=== PATIENT | female | born 1955 | race Caucasian/White ===

== ENCOUNTER 2019-10-08 10:44 | Outpatient (CLI) | payer BC, SELFPAY ==
--- NOTE | 2019-10-08 10:57 | XR_ITS ---
WS: [id number] THORACIC SPINE TECHNIQUE: 3 views of the thoracic spine CLINICAL INFORMATION: BACK PAIN COMPARISON: None. FINDINGS: Mild thoracic curve convex right. Mild spondylitic changes. Mild thoracic kyphosis. Mild disc space n arrowing in the mid and lower thoracic spine with slight chronic anterior wedging. No acute appearing compression fractures. Disc space narrowing in the lower cervical spine partially visualized. XR/XR thoracic spine 3V* [id number] IMPRESSION: Mild thoracic curve convex right with mild spondylitic changes. No acute appear ing thoracic spine findings.
== END 2019-10-08 10:45 | disposition home or self-care (01) ==
PROVIDERS: Family Provider Electrodiagnostic Medicine; PCP Electrodiagnostic Medicine; Visit Provider Electrodiagnostic Medicine
DX: M54.9 Dorsalgia, unspecified (principal)
CPT/HCPCS: 72072

== ENCOUNTER 2019-11-04 14:52 | Outpatient (CLI) | payer BC, SELFPAY ==
--- NOTE | 2019-11-04 15:05 | XR_ITS ---
WS: [id number] SCREENING DEXA SCAN scroll kit CLINICAL INFORMATION: POSTMENOPAUSAL STATUS COMPARISON: None. FINDINGS: The L1-L4 bone mineral density measures 1.208 g/cm2. This corresponds to a T score score of 0.2 and Z score of 0.6. Left femoral neck bone mineral density measures 0.861 g/cm2. This corresponds to a T score of -1.2 an d Z score of -0.8. Right femoral neck bone mineral density measures 0.893 g/cm2. This corresponds to a T score -0.9of an d Z score of -0.6. Mean femoral neck bone mineral density measures 0.877 g/cm2. This corresponds to a T score of -1.0 an d Z score of -0.7. XR/XR DEXA axial skeleton* [id number] IMPRESSION: Normal bone mineralization in the lumbar spine. Osteopenia in the femoral necks . Patient's FRAX calculated 10 year probability for major osteoporotic fracture i s 9.9 % and osteoporotic hip fracture is 1.0%.
== END 2019-11-04 14:53 | disposition home or self-care (01) ==
LOC: RADWPI 14:54
PROVIDERS: Family Provider Electrodiagnostic Medicine; PCP Electrodiagnostic Medicine; Visit Provider Electrodiagnostic Medicine
DX: Z78.0 Asymptomatic menopausal state (principal); M85.88 Other specified disorders of bone density and structure, other site
CPT/HCPCS: 77080

== ENCOUNTER → 2020-03-01 10:38 | Outpatient (BNVA) | payer MEDICARE, SELFPAY | PROVIDERS: Family Provider Electrodiagnostic Medicine; PCP Electrodiagnostic Medicine; Referring Provider Electrodiagnostic Medicine; Visit Provider Podiatrist Foot & Ankle Surgery | DX: M21.611 Bunion of right foot (principal); M21.612 Bunion of left foot; M20.41 Other hammer toe(s) (acquired), right foot; M20.42 Other hammer toe(s) (acquired), left foot; M67.472 Ganglion, left ankle and foot; M79.672 Pain in left foot | CPT/HCPCS: 73630 ==

== ENCOUNTER 2021-10-07 12:46 | Outpatient (CLI) | payer MEDICARE, SELFPAY ==
--- NOTE | 2021-10-07 13:24 | MM_ITS ---
WS: [id number] BILATERAL 3D TOMOSYNTHESIS DIGITAL SCREENING MAMMOGRAPHY WITH CAD CLINICAL INFORMATION: SCREENING HISTORY: Screening mammogram. No current complaints. COMPARISON: September 09, 2020 TECHNIQUE: Bilateral CC and MLO views. FINDINGS: Scattered fibroglandular densities bilaterally. Punctate and lucent centered calcifications. Vascular calcifications. No suspicious focal mass, asymmetry, calcifications, or architectural distortion. No evidence of malignancy. MM/[place] [id number] IMPRESSION: BI-RADS: 2-Benign FOLLOW UP: 1 Year Follow-up Recommend return to annual screening mammography.
== END 2021-10-07 12:47 | disposition home or self-care (01) ==
LOC: RAD 12:48
PROVIDERS: Family Provider Electrodiagnostic Medicine; PCP Electrodiagnostic Medicine; Visit Provider Electrodiagnostic Medicine
DX: Z12.31 Encounter for screening mammogram for malignant neoplasm of breast (principal)
CPT/HCPCS: 77063; 77067

== ENCOUNTER 2022-05-18 06:41 | Emergency (ER) | payer MEDICARE, SELFPAY ==
--- NOTE | 2022-05-18 06:46 | W.ED.BACK ---
HPI - Back Pain/Injury General: Chief Complaint: Back Pain/Injury Stated Complaint: Lower back pain Time Seen by Provider: 05/18/22 06:46 Source: patient Mode of arrival: ambulatory History of Present Illness: 60-year-old female presents emergency room planing of low back pain left of the midline she cannot recall if he had precipitated. Patient previously had a chronic back issues or advanced imaging or procedures done to her back. Pain does not radiate to her legs no loss of bowel or bladder control. No numbness tingling pain change in legs or perineum. States actually feels better when she walks. No falls no trauma no hematuria a few days ago she was seen in clinic and they thought it was a bladder infection she was started on oral antibiotics. Patient not had any fever sweats or chills or hematuria. MD elicited complaint: back pain Pertinent past history: prior back pain Onset (ago): minute(s) Timing: constant Severity: mild Similar Symptoms Previously: No Quality: aching Location: lumbar spine Radiation: none Exacerbating factors: movement, sitting upright and walking Relieving factors: none Associated symptoms: Reports dysuria (Mild); Deny abdominal pain, arthralgias, chills, change in bowel habits, difficulty walking, fatigue, fecal incontinence, fever(s), hematuria, myalgias, nausea, numbness, syncope, tingling/numbness/burning, urinary frequency, urinary urgency, vomiting or weakness Review of Systems Const: Denies: fever(s), chills or fatigue ENMT: Denies: throat pain, ear or mastoid pain, nasal discharge or nasal congestion Card: Denies: syncope Resp: Denies: dyspnea, productive cough or non-productive cough GI: Denies: abdominal pain, nausea, vomiting, fecal incontinence or change in bowel habits : Reports: dysuria (Mild); Denies: flank pain, difficulty voiding, urinary urgency or hematuria Musc: Reports: back pain; Denies: neck pain, extremity pain or extremity swelling Skin/Breast: Denies: rash or pruritus Neuro: Denies: difficulty walking PFSH ED PFSH: Medical History GERD (gastroesophageal reflux disease) Surgical History History of foot surgery bunionectomy left foot, hammer toe correction left foot Social History Smoking and tobacco status: never smoked Alcohol intake: never Current occupational status: retired Physical Exam Const: COMMON NORMALS: no acute distress and patient oriented x3 GENERAL APPEARANCE: cooperative and comfortable ORIENTATION/CONSCIOUSNESS: Yes awake, Yes oriented to person, Yes oriented to place and Yes oriented to time HENMT: COMMON NORMALS: normocephalic, atraumatic and hearing grossly normal bilaterally HEAD & SCALP: normocephalic and atraumatic Resp: COMMON NORMALS: normal respiratory effort, No retractions, No use of accessory muscles and clear to auscultation bilaterally AUSCULTATION: clear to auscultation bilaterally Cardio: COMMON NORMALS: regular rate, regular rhythm and No murmurs present (Cardio) RATE: regular rate RHYTHM: regular rhythm GI: COMMON NORMALS: Soft to palpation and No hepatosplenomegaly present AUSCULTATION: Yes normoactive bowel sounds PALPATION: Yes Soft to palpation, No Tenderness to palpation present (GI), No Guarding due to palpation present (GI) and Yes No hepatosplenomegaly present Extremity: COMMON NORMALS: normal to inspection, capillary refill normal, no clubbing, cyanosis or edema, no calf tenderness and no pedal edema Neuro: COMMON NORMALS: patient oriented x3, CN's II-XII intact bilaterally and moves all extremities SENSORIUM/ORIENTATION: Yes oriented to person, Yes oriented to place and Yes oriented to time SPEECH: speech normal GAIT: Yes Normal gait present SENSORY EXAM: No sensory level loss detected MOTOR EXAM: 5/5 motor strength present throughout, Normal motor muscle tone present throughout, No Pronator motor function present and Tremors during motor activity present DEEP TENDON REFLEXES: Right patellar reflex intensity grade: 2+, Left patellar reflex intensity grade: 2+, Right ankle reflex intensity grade: 1+ and Left ankle reflex intensity grade: 1+ Skin: COMMON NORMALS: no rashes or lesions noted GENERAL SKIN EXAM: no rashes or lesions noted Course Vital Signs: Vital signs: Vital Signs Temperature 98.5 F 05/18/22 06:47 Pulse Rate 102 H 05/18/22 07:18 Respiratory Rate 16 05/18/22 07:18 Blood Pressure 158/108 05/18/22 07:18 Pulse Oximetry 96 12/22/22 07:18 Oxygen Delivery Me thod 05/18/22 07:18 MDM - Back Pain/Injury Medical Decision Making Exam does not show any sign of lumbar nerve impingement UA is negative. Straight leg raising deep tendon sensation lower extremities all normal. Discharged home with tizanidine steroid taper diclofenac as needed. Follow-up with her primary care if not improving. Medical Records I reviewed the patient's medical records. Labs I reviewed the patient's lab results. Laboratory Results Urine Color Yellow (Yellow) 05/18/22 07:13 Urine Appearance Clear (CLEAR) 05/18/22 07:13 Urine pH 7 (5-7) 05/18/22 07:13 Ur Specific [place] 1.015 (1.005-1.030) 05/18/22 07:13 Urine Protein Neg (Negative) 05/18/22 07:13 Urine Glucose (UA) Norm (Normal) 05/18/22 07:13 Urine Ketones 1+ (Negative) H 05/18/22 07:13 Urine Blood Neg (Negative) 05/18/22 07:13 Urine Nitrate Negative (Negative) 05/18/22 07:13 Urine Bilirubin Neg (Negative) 05/18/22 07:13 Urine Urobilinogen Neg mg/dL (Negative) 05/18/22 07:13 Ur Leukocyte Esterase Negative (Negative) 05/18/22 07:13 Discharge Plan Discharge Patient Disposition: Home Clinical Impression: Strain of lumbar region Condition: Stable Prescriptions: New tizanidine 4 mg tablet 4 mg PO Q8H PRN (Reason: muscle spasticity) Qty: 20 0RF prednisone 20 mg tablet 20 mg PO TID Qty: 15 0RF Rx Instructions: 1 p.o. 3 times daily x3 days, 1 p.o. twice daily x2 days, 1 p.o. daily x2 days diclofenac sodium 75 mg tablet,delayed release (DR/EC) 75 mg PO Q12H PRN (Reason: pain) Qty: 20 0RF No Action magnesium oxide 200 mg magnesium tablet,chewable 200 mg PO DAILY atorvastatin 20 mg tablet 20 mg PO QPM cholecalciferol (vitamin D3) 25 mcg (1,000 unit) capsule 25 mcg PO DAILY Lactobacillus acidophilus Capsule 10 mg PO DAILY omeprazole 20 mg capsule,delayed release(DR/EC) 20 mg PO DAILY Galzin 50 mg (zinc) capsule 50 mg PO DAILY pimecrolimus [Elidel] 1 % cream 1 applic topical BID Qty: 60 1RF Rx Instructions: Apply to affected area on face twice daily as needed metronidazole 1 % gel 1 applic topical DAILY Qty: 60 6RF Rx Instructions: Apply thin film to entire face daily cefuroxime axetil 500 mg tablet 500 mg PO BID fluticasone propionate 50 mcg/actuation spray,suspension 1 spray INTRANASAL QPM coQ10 (ubiquinol) 200 mg Capsule 200 mg PO DAILY Discharge Orders: Discharge ED (Routine); Ordered 05/18/22 Ordered By: Tato Grullon Referrals: James Velazquez, [Primary Care Provider] - Discharge Diet: Usual diet Discharge Activity: Increase activity as tolerated Patient Instructions: Back Pain (ED), Opioid Safety, Pain Management Activity Restrictions/Additional Instructions: You were seen for low back pain. There is no signs of nerve impingement on your exam no sign of bladder infection at this time recommend you avoid bending stooping lifting below the waist. Use medications as prescribed above. If not improving follow-up with your primary care doctor for further evaluation or possible referral for PT or advanced imaging as deemed appropriate. Coding Level of Care Code ED Iron Molder Helper for Zonia Fwd Exam Comprehensive
[2022-05-18 06:47] VITALS: BP 158/108; PULSE 106; RESP 20; TEMP 36.9; O2SAT 96; BMI 35.5
[2022-05-18 07:18] VITALS: BP 158/108; PULSE 102; RESP 16; O2SAT 96
[2022-05-18 07:25] LABS: Add Urine Microscopic? NO; Charge for UA Resulting for Rev
[2022-05-18 07:28] LABS: Urine Appearance Clear (CLEAR); Urine Color Yellow (Yellow)
[2022-05-18 07:29] LABS: Bilirubin Urine Neg (Negative); Blood Urine Neg (Negative); Glucose Urine UA Norm (Normal); Ketones Urine 1+ (Negative); Leukocyte Esterase Urine Negative (Negative); Nitrate Urine Negative (Negative); Protein Urine Neg (Negative); Specific Gravity, Urine 1.015 (1.005-1.030); Urobilinogen Urine Neg (Negative); pH Urine 7 (5-7)
[2022-05-18] MEDS: dexamethasone 10 mg/mL INJ IVP (07:32)
[2022-05-18] MEDS: ketorolac 30 mg/mL INJ IVP (07:32)
[2022-05-18] MEDS: orphenadrine 30 mg/mL Inj 2 mL 60 MG IVP (07:32)
[2022-05-18] MEDS: morphine 4 mg/mL SDV 1 mL 2 MG IVP (07:32)
[2022-05-18 08:53] VITALS: BP 158/108; PULSE 102; RESP 16; O2SAT 96
== END 2022-05-18 08:55 | disposition home or self-care (01) ==
PROVIDERS: Emergency Provider Family Medicine; PCP Electrodiagnostic Medicine
DX: S39.012A Strain of muscle, fascia and tendon of lower back, initial encounter (principal); X58.XXXA Exposure to other specified factors, initial encounter
CPT/HCPCS: 81003; 96374; 96375; 99284; J1100; J1885; J2270; J2360

== ENCOUNTER 2022-10-16 07:46 | Outpatient (CLI) | payer MEDICARE, SELFPAY ==
--- NOTE | 2022-10-16 07:55 | MM_ITS ---
WS: [id number] BILATERAL SCREENING DIGITAL TOMOSYNTHESIS MAMMOGRAM WITH CAD HISTORY: SCREENING COMPARISON: 10/07/2021, 09/09/2020 and 08/13/2019 Bilateral CC and MLO views with tomosynthesis and synthetic mammography submitted. Computer aided det ection analyzed. Breast composition: There are scattered areas of fibroglandular density. No suspicious masses, microc alcifications or architectural distortion. Benign calcifications and long-term stability mass in the LEFT breast. MM/[place] [id number] IMPRESSION: BI-RADS: 2-Benign FOLLOW UP: 1 Year Follow-up
== END 2022-10-16 07:47 | disposition home or self-care (01) ==
LOC: RAD 07:48
PROVIDERS: PCP Electrodiagnostic Medicine; Visit Provider Electrodiagnostic Medicine
DX: Z12.31 Encounter for screening mammogram for malignant neoplasm of breast (principal)
CPT/HCPCS: 77063; 77067

== ENCOUNTER → 2023-03-09 10:19 | Outpatient (BNVA) | payer MEDICARE, SELFPAY | PROVIDERS: PCP Electrodiagnostic Medicine; Visit Provider Nurse Practitioner Family | DX: L81.4 Other melanin hyperpigmentation (principal); D22.5 Melanocytic nevi of trunk; L85.3 Xerosis cutis; L57.8 Other skin changes due to chronic exposure to nonionizing radiation; L57.0 Actinic keratosis; L82.0 Inflamed seborrheic keratosis; L72.0 Epidermal cyst | CPT/HCPCS: 10060; 17000; 17110; 99213 ==

== ENCOUNTER 2023-07-24 12:00 | Outpatient (CLI) | payer MEDICARE, SELFPAY | END 2023-07-24 12:01 | disposition home or self-care (01) | LOC: SLEEP 07-25 08:38 | PROVIDERS: PCP Electrodiagnostic Medicine; Visit Provider Electrodiagnostic Medicine | DX: G47.33 Obstructive sleep apnea (adult) (pediatric) (principal) | CPT/HCPCS: G0399 ==

== ENCOUNTER → 2023-09-10 10:13 | Outpatient (BNVA) | payer MEDICARE, SELFPAY | PROVIDERS: PCP Electrodiagnostic Medicine; Visit Provider Nurse Practitioner Family | DX: L57.0 Actinic keratosis (principal); L72.0 Epidermal cyst; L81.4 Other melanin hyperpigmentation; D22.61 Melanocytic nevi of right upper limb, including shoulder; L85.3 Xerosis cutis; L57.8 Other skin changes due to chronic exposure to nonionizing radiation; L82.0 Inflamed seborrheic keratosis | CPT/HCPCS: 17000; 17110; 99213 ==

== ENCOUNTER 2023-10-18 07:43 | Outpatient (CLI) | payer MEDICARE, SELFPAY ==
--- NOTE | 2023-10-18 07:49 | MM_ITS ---
WS: [id number] Bilateral screening 3D tomosynthesis digital mammogram, 10/18/2023 Clinical Data: SCREENING Comparison: 10/16/2022, 10/07/2021, 09/09/2020, 08/13/2019, 07/29/2018, 07/17/2018, 07/06/2017 06/21/2016, 04/28, 05/13/2014, 05/12/2013, 05/10/2012. Findings: The breast parenchymal pattern shows fibroglandular tissue. No spiculated masses or clustered calcifi cations are seen. There are no secondary signs of carcinoma. MM/[place] [id number] Impression: 1. Negative bilateral mammogram unchanged. 2. Recommend annual screening mammograms. BIRADS: 1-Negative FOLLOW UP: 1 Year Follow-up The CAD stock checkerer was used.
== END 2023-10-18 07:44 | disposition home or self-care (01) ==
LOC: RAD 07:44
PROVIDERS: PCP Electrodiagnostic Medicine; Visit Provider Electrodiagnostic Medicine
DX: Z12.31 Encounter for screening mammogram for malignant neoplasm of breast (principal); R92.323 Mammographic fibroglandular density, bilateral breasts
CPT/HCPCS: 77063; 77067

== ENCOUNTER → 2024-03-19 08:10 | Outpatient (BNVA) | payer MEDICARE, SELFPAY | PROVIDERS: PCP Electrodiagnostic Medicine; Visit Provider Nurse Practitioner Family | DX: L71.8 Other rosacea (principal); L57.0 Actinic keratosis; L82.0 Inflamed seborrheic keratosis; D48.5 Neoplasm of uncertain behavior of skin; L57.8 Other skin changes due to chronic exposure to nonionizing radiation | CPT/HCPCS: 11104; 17000; 17110; 99213 ==

== ENCOUNTER → 2024-08-27 12:27 | Outpatient (BNVA) | payer MEDICARE, SELFPAY | PROVIDERS: PCP Electrodiagnostic Medicine; Visit Provider Nurse Practitioner Family | DX: L57.8 Other skin changes due to chronic exposure to nonionizing radiation (principal); I78.8 Other diseases of capillaries; L82.1 Other seborrheic keratosis; Z08 Encounter for follow-up examination after completed treatment for malignant neoplasm; Z85.828 Personal history of other malignant neoplasm of skin; L82.0 Inflamed seborrheic keratosis; R58 Hemorrhage, not elsewhere classified; Z78.9 Other specified health status; L29.89 Other pruritus | CPT/HCPCS: 17110; 99213 ==

== ENCOUNTER → 2024-10-08 11:02 | Outpatient (BNVA) | payer MEDICARE, SELFPAY | PROVIDERS: PCP Electrodiagnostic Medicine; Visit Provider Nurse Practitioner Family | DX: L57.8 Other skin changes due to chronic exposure to nonionizing radiation (principal); I78.8 Other diseases of capillaries; L82.1 Other seborrheic keratosis; Z08 Encounter for follow-up examination after completed treatment for malignant neoplasm; Z85.828 Personal history of other malignant neoplasm of skin; L82.0 Inflamed seborrheic keratosis; Z78.9 Other specified health status; L53.8 Other specified erythematous conditions; D48.5 Neoplasm of uncertain behavior of skin; L57.0 Actinic keratosis | CPT/HCPCS: 11102; 17000; 17110; 99213 ==

== ENCOUNTER 2024-10-27 08:27 | Outpatient (CLI) | payer MEDICARE, SELFPAY ==
--- NOTE | 2024-10-27 08:29 | MM_ITS ---
WS: [id number] BILATERAL SCREENING DIGITAL TOMOSYNTHESIS MAMMOGRAM WITH CAD HISTORY: SCREENING COMPARISON: 10/18/2023, 10/16/2022, 08/13/2019 Bilateral CC and MLO views with tomosynthesis and synthetic mammography submitted. Computer aided detection analyzed. Breast composition: There are scattered areas of fibroglandular density. No suspicious masses, microcalcifications or architectural distortion. Long-term stability of well-circumscribed mass LEFT breast near 3:00. Benign calcifications. MM/MM scr BI tomosynthesis [id number] IMPRESSION: BI-RADS: 2 - Benign. FOLLOW UP: 1 Year Follow-up
== END 2024-10-27 08:28 | disposition home or self-care (01) ==
PROVIDERS: PCP Electrodiagnostic Medicine; Visit Provider Electrodiagnostic Medicine
DX: Z12.31 Encounter for screening mammogram for malignant neoplasm of breast (principal); R92.323 Mammographic fibroglandular density, bilateral breasts; N63.25 Unspecified lump in the left breast, overlapping quadrants; R92.1 Mammographic calcification found on diagnostic imaging of breast
CPT/HCPCS: 77063; 77067

== ENCOUNTER → 2024-11-12 12:50 | Outpatient (BNVA) | payer MEDICARE, SELFPAY | PROVIDERS: PCP Electrodiagnostic Medicine; Visit Provider Dermatology | DX: I78.8 Other diseases of capillaries (principal); L82.1 Other seborrheic keratosis; Z08 Encounter for follow-up examination after completed treatment for malignant neoplasm; Z85.828 Personal history of other malignant neoplasm of skin; C44.311 Basal cell carcinoma of skin of nose; D48.5 Neoplasm of uncertain behavior of skin | CPT/HCPCS: 11102; 17281; 99213 ==

== ENCOUNTER → 2024-12-16 08:39 | Outpatient (BNVA) | payer MEDICARE, SELFPAY | PROVIDERS: PCP Electrodiagnostic Medicine; Visit Provider Dermatology | DX: C44.319 Basal cell carcinoma of skin of other parts of face (principal) | CPT/HCPCS: 12052; 17311 ==

== ENCOUNTER 2025-02-10 16:20 | Emergency (ER) | payer MEDICARE, SELFPAY ==
[2025-02-10 16:24] VITALS: BP 120/79; PULSE 89; RESP 17; TEMP 36.8; O2SAT 96; BMI 28.8
--- OUTSIDE RECORDS SUMMARY | 2025-02-10 16:26 | XMS_ITS | Clinical Summary ---
Author Organization [facility] Address [address] [place] [address] Phone Care Team Providers Care Car Unloader Helper Name Role Phone James Velazquez DO Primary Care Provider [phone] Allergies No known active allergies Medications omeprazole (PriLOSEC) 20 mg Capsule, Delayed Release(E.C.) Take 20 mg by mouth daily. Active losartan (COZAAR) 50 mg tablet Take 50 mg by mouth daily. Active Active Problems No known active problems Family History Medical History Relation Name Comments Colon Cancer Mother Breast Cancer Neg Hx Ovarian Cancer Neg Hx Relation Name Status Comments Daughter 1 Alive Daughter 2 Alive Maternal Grandmother Mother Sister NONE Social History Tobacco Use Types Packs/Day Years Used Date Smoking Tobacco: Never Smokeless Tobacco: Never Tobacco Cessation:Counseling Given: No Alcohol Use Standard Drinks/Week Comments No 0 (1 standard drink = 0.6 oz pur e alcohol) Comments No Sex and Gender Information Value Date Recorded Sex Assigned at Not on file Legal Sex Female 9:49 PM CUSTOMS INVESTIGATOR Gender Identity Not on file Sexual Orientation Not on file Last Filed Vital Signs Vital Sign Reading Time Taken Comments Blood Pressure 118/78 04/11/2012 5:22 PM CUSTOMS INVESTIGATOR Pulse 87 04/11/2012 5:22 PM CUSTOMS INVESTIGATOR Temperature 37.1 C (98.8 F) 04/11/2012 3:22 PM CUSTOMS INVESTIGATOR Respiratory Rate 16 04/11/2012 5:22 PM CUSTOMS INVESTIGATOR Oxygen Saturation 100% 04/11/2012 5:22 PM CUSTOMS INVESTIGATOR Inhaled Oxygen Concentration - - Weight 86.2 kg (190 lb) 04/11/2012 3:22 PM CUSTOMS INVESTIGATOR Height 167.6 cm (5' 6 ) 04/11/2012 3:22 PM CUSTOMS INVESTIGATOR Body Mass Index 30.67 04/11/2012 3:22 PM CUSTOMS INVESTIGATOR Plan of Treatment Health Maintenance Due Date Last Done Comments DTAP/TDAP/TD VACCINES (1 - Tdap) 1974 COLORECTAL SCREENING 02/01/2000 Colorectal Cancer Screening 02/01/2000 FIT-DNA Q 3 years 02/01/2000 FIT/FOBT Q 1 year 02/01/2000 Flex Sig/CT Colonography Q 5 years 02/01/2000 PNEUMOCOCCAL VACCINE 50+ YEA RS (1 of 1 - PCV) 2005 ZOSTER VACCINE (1 of 2) 2005 OSTEOPOROSIS SCREENING 02/01/2020 BREAST CANCER SCREENING 09/09/2021 09/10/19 21, 09/09/2020, 08/13/2019, Additional history exists INFLUENZA VACCINE (#1) 2024 RSV VACCINE (60+ or ) (1 - 1-dose 75+ series) 2030 Procedures Procedure Name Priority Date/Time Associated Diagnosis Comments MAMMO SCREEN BILAT W OR WO CAD Routine 09/09/2020 10:03 AM CDT Encounter for screening mammogram for malignant neoplasm of breast from Last 3 Months or Most Recently Relevant to Health Maintenance Results * MAMMO SCREEN BILAT W OR WO CAD (09/09/2020 10:03 AM CDT) Anatomical Region Laterality Modality Breast Bilateral Other Narrative 09/09/2020 3:46 PM CDT Bilateral Mammogram Reason for Exam: Screening Comparison: Compared to: 08/13/2019 MAMMO SCREEN BILAT W OR WO CAD, 07/17/2018 MAMMO SCREEN BILAT W OR WO CAD, and 07/06/2017 MAMMO SCREEN BILAT W OR WO CAD Findings: Bilateral CC and MLO views were obtained. This examination was reviewed with the aid of a computer-aided detection system(CAD). Breast Composition: There are scattered areas of fibroglandular density. There are no suspicious masses, areas of architectural distortions, or microcalcifications to suggest malignancy. No significant new findings since the prior mammogram(s). Impression: Negative screening mammogram. Recommendation: Routine annual follow-up Overall Assessment: Birads Category 1: Negative Procedure Note Giovanni Phillips MD - 11/02/2020 Bilateral Mammogram Reason for Exam: Screening Comparison: Compared to: 08/13/2019 MAMMO SCREEN BILAT W OR WO CAD, 07/17/2018 MAMMO SCREEN BILAT W OR WO CAD, and 07/06/2017 MAMMO SCREEN BILAT W OR WO CAD Findings: Bilateral CC and MLO views were obtained. This examination was reviewed with the aid of a computer-aided detection system(CAD). Breast Composition: There are scattered areas of fibroglandular density. There are no suspicious masses, areas of architectural distortions, or microcalcifications to suggest malignancy. No significant new findings since the prior mammogram(s). Impression: Negative screening mammogram. Recommendation: Routine annual follow-up Overall Assessment: Birads Category 1: Negative us Mammography Self Referral Provider MD KAMERON LI Final Result from Last 3 Months or Most Recently Relevant to Health Maintenance [place] [address] [place] [id number] Care Teams Car Unloader Helper Relationship Specialty Start Date End Date James Velazquez DO PCP - General 08/26/20
--- OUTSIDE RECORDS SUMMARY | 2025-02-10 16:26 | XMS_ITS | Encounter Summary ---
Author Organization [facility] Address [address] [place] [address] Care Team Providers Care Long Filler Cigar Roller Machine Name Role Phone James Velazquez Primary Care Provider [phone] Reason for Referral * Radiology Services (Routine) - Closed Specialty Diagnoses / Procedures Referred By Contac t Referred To Contact Diagnoses Encounter for screening mammogram for malignant neoplasm of breast Procedures MAMMO SCREEN BILAT W OR WO CAD Self Referral ProviderJohn MD Referral ID Status Reason Start Date Expiration Date Visits Re quested Visits Authorized [id number] Closed 08/24/2020 09/24/2021 1 1 Encounter Details Date Type Department Care Team (Late st Contact Info) Description 08/24/2020 Ancillary Orders [facility] Centralized Scheduling [address] [place] [id number] Self Referral ProviderJohn MD Encounter for screening mammogram for malignant neoplasm of breast Social History Tobacco Use Types Packs/Day Years Used Date Smoking Tobacco: Never Assessed Comments Unknown Sex and Gender Information Value Date Recorded Sex Assigned at Not on file Legal Sex Female 1:29 PM IC DESIGNER CUSTOM Gender Identity Not on file Sexual Orientation Not on file documented as of this encounter Plan of Treatment Not on file documented as of this encounter Results * MAMMO SCREEN BILAT W OR WO CAD (09/09/2020 10:03 AM CDT) Anatomical Region Laterality Modality Breast Bilateral Mammography Narrative 09/09/2020 3:50 PM CDT Bilateral Mammogram Reason for Exam: [...] Referral Provider MD KAMERON LI Final Result documented in this encounter Visit Diagnoses Diagnosis Encounter for screening mammogram for malignant neoplasm of breast Other screening mammogram Encounter for screening mammogram for malignant neoplasm of breast Other screening mammogram documented in this encounter Care Teams Long Filler Cigar Roller Machine Relationship Specialty Start Date End Date James Velazquez DO PCP - General Family Practice 08/13/19 documented as of this encounter
--- OUTSIDE RECORDS SUMMARY | 2025-02-10 16:26 | XMS_ITS | Clinical Summary ---
Author Organization [facility] Address [address] [place] [address] Phone Care Team Providers Care Machine Adjuster Name Role Phone James Velazquez Primary Care Provider Family History Medical History Relation Name Comments Colon Cancer Mother Breast Cancer Neg Hx Ovarian Cancer Neg Hx Relation Name Status Comments Daughter 1 Alive Daughter 2 Alive Maternal Grandmother Mother Sister NONE Social History Tobacco Use Types Packs/Day Years Used Date Smoking Tobacco: Never Assessed Comments No Sex and Gender Information Value Date Recorded Sex Assigned at Not on file Legal Sex Female 1:29 PM SUPERVISOR INSPECTING Gender Identity Not on file Sexual Orientation Not on file Plan of Treatment Health Maintenance Due Date [...] 02/01/2020 BREAST CANCER SCREENING 09/09/2021 09/10/19 21, 08/13/2019, 07/17/2018, Additional history exists INFLUENZA VACCINE (#1) 2024 [...] Most Recently Relevant to Health Maintenance Insurance [facility] MEDIC[facility] PART A AND B Care Teams Machine Adjuster Relationship Specialty Start Date End Date James Velazquez DO PCP - General Family Practice 08/13/19
--- OUTSIDE RECORDS SUMMARY | 2025-02-10 16:26 | XMS_ITS | Encounter Summary ---
Author Organization [facility] Address [address] [place] [address] Care Team Providers Care Clinical Account Specialist Name Role Phone James Velazquez DO Primary Care Provider [phone] Encounter Details Date Type Department Care Team (Late st Contact Info) Description 02/14/2008 Outpatient Historical [place] [address] [place] [place] [address] [place] [address] Other Symptoms Referable to Hand Joint Social History Tobacco Use Types Packs/Day Years Used Date Smoking Tobacco: Never Assessed Comments Unknown Sex and Gender Information Value Date Recorded Sex Assigned at Not on file 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 Gender Identity Not on file Sexual Orientation Not on file documented as of this encounter Plan of Treatment Not on file documented as of this encounter Procedures Procedure Name Priority Date/Time Associated Diagnosis Comments MRI WRIST WO CONTRAST RIGHT Timed Study 02/14/2008 7:59 AM CDT POC CREATININE Routine 02/14/2008 7:18 AM CDT documented in this encounter Results * MRI WRIST WO CONTRAST RIGHT (02/14/2008 7:59 AM CDT) Anatomical Region Laterality Modality Wrist / Hand Other 02/14/2008 7:59 AM CDT Narrative 02/14/2008 4:53 PM CDT [address] [address] Admit Date: 02/14/2008 C[place] PRO Sex: F Admit Prov: BONY CHAMBERS Date: 1955 Primary Care Prov: KIZZY CRAWFORD CMRN: [id number] [facility] SS[facility]: [id number] IM[facility]ING SERVICES Ordering Prov: N/A Accession Number: [id number] Interpretation EXAM: MRI RIGHT HAND AND FINGERS WITH AND WITHOUT IV CONTRAST 02/14/2008 Indication: Palpable mass which comes and goes. Findings: A marker is placed at the site of the mass which is just lateral to the index finger proximal interphalangeal joint. At this joint, there is very small exostosis or osteophyte measuring about 2 mm projecting laterally off of the middle phalanx. The joint is normally aligned and symmetric with the other PIP joints. The collateral ligaments, the extensor mechanism and flexor tendons are all normally positioned with normal signal and normal size. There is no joint effusion. There is no evidence of a soft tissue mass or cyst. After contrast injection, there is no abnormal enhancement. This finger demonstrates an ill-defined lobulated mass with several small projections surrounding the proximal interphalangeal joint measuring 2.4 cm craniocaudal x 1.2 cm AP x 1.6 cm transverse. The mass works its way around the joint, surrounding the collateral ligaments and is predominantly deep to the extensor fluid. There is a small portion of mass extending around to the volar side of the proximal phalanx deep to the flexor tendon. Lesion is mostly bright on T2 and dark on T1 and demonstrates diffuse fairly homogeneous enhancement after contrast administration. Exam is slightly limited as this finger is not included in the sagittal views and is imaged in the oblique plane on the coronal views which were angled in relation to the index finger. I do not see an obvious erosion at the joint margin. Flexor and extensor tendons are still intact. Impression: No evidence of soft tissue mass involving the index finger, although there is a tiny laterally projecting exostosis or osteophyte at the PIP joint. This is small enough that I doubt it is causing the palpable mass. There is an enhancing lesion surrounding the proximal interphalangeal joint of the fifth finger demonstrating diffuse enhancement. Characteristics are nonspecific. The differential includes diffuse abnormal synovial proliferation and enhancement associated with an inflammatory arthritis, such as infection or gout, however I do not appreciate marginal erosions. Also included in the differential is enhancing gouty tophus, giant cell tumor of tendon sheath or even a synovial cell carcinoma. Clinical history and further workup is recommended. . Dictated by: MICH KEENE 02/14/2008 12:19 Electronically signed by: MICH KEENE 02/14/2008 16:52 Transcribed: 02/14/2008 16:15 AMK Procedure Note Mich Keene - 02/14/2008 [facility] [place] [address] [place], [place] [address] Admit Date: 02/14/2008 [place] PRO Sex: F Admit Prov: BONY CHAMBERS Date: 1955 Primary Care Prov: KIZZY CRAWFORD CMRN: [id number] Room: [facility] SSN: [id number] IMAGING SERVICES Ordering Prov: N/A Interpretation EXAM: MRI RIGHT HAND AND FINGERS WITH AND WITHOUT IV CONTRAST02/14/2008 Indication: Palpable mass which comes and goes. Findings: A marker is placed at the site of the mass which is just lateral tothe index finger proximal interphalangeal joint. At this joint, there isvery small exostosis or osteophyte measuring about 2 mm projectinglaterally off of the middle phalanx. The joint is normally aligned and symmetricwith the other PIP joints. The collateral ligaments, the extensor mechanismand flexor tendons are all normally positioned with normal signal andnormal size. There is no joint effusion. There is no evidence of a softtissue mass or cyst. After contrast injection, there is no abnormalenhancement. This finger demonstrates an ill-defined lobulated mass with severalsmall projections surrounding the proximal interphalangeal joint measuring2.4 cm craniocaudal x 1.2 cm AP x 1.6 cm transverse. The mass works its wayaround the joint, surrounding the collateral ligaments and is predominantlydeep to the extensor fluid. There is a small portion of mass extendingaround to the volar side of the proximal phalanx deep to the flexor tendon.Lesion is mostly bright on T2 and dark on T1 and demonstrates diffuse fairly homogeneous enhancement after contrast administration. Exam isslightly limited as this finger is not included in the sagittal views and isimaged in the oblique plane on the coronal views which were angled inrelation to the index finger. I do not see an obvious erosion at the jointmargin. Flexor and extensor tendons are still intact. Impression: No evidence of soft tissue mass involving the index finger, althoughthere is a tiny laterally projecting exostosis or osteophyte at the PIPjoint. This is small enough that I doubt it is causing the palpable mass. There is an enhancing lesion surrounding the proximal interphalangealjoint of the fifth finger demonstrating diffuse enhancement.Characteristics are nonspecific. The differential includes diffuse abnormal synovial proliferation and enhancement associated with an inflammatoryarthritis, such as infection or gout, however I do not appreciate marginalerosions. Also included in the differential is enhancing gouty tophus, giantcell tumor of tendon sheath or even a synovial cell carcinoma. Clinicalhistory and further workup is recommended. . Dictated by: MICH KEENE 02/14/2008 12:19 Electronically signed by: MICH KEENE 02/14/2008 16:52 Transcribed: 02/14/2008 16:15 AMK us Bony Chambers MD MR ORDERABLES Final Result * POC CREATININE (02/14/2008 7:18 AM CDT) CREATININE POC 0.7 0.6 - 1.3 mg/dL [facility] GFR, >60 >=60 mL/min/1.7 sq meter [facility] GFR >60 >=60 mL/min/1.7 sq meter [facility] Capillary blood specimen (specimen) 02/14/2008 7:18 AM CDT 02/14/2008 7:18 AM CDT us Bony Chambers MD POINT OF CARE TESTING Edited INTERFACE SYSTEM Refer to clinic/hospital department [facility] CLIA# [id number] [address] [place] [address] documented in this encounter Visit Diagnoses Diagnosis Other symptoms referable to hand joint documented in this encounter Care Teams Clinical Account Specialist Relationship Specialty Start Date End Date James Velazquez DO PCP - General 08/26/20 documented as of this encounter
--- OUTSIDE RECORDS SUMMARY | 2025-02-10 16:26 | XMS_ITS | Encounter Summary ---
Author Organization [facility] Address 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
[2025-02-10 16:42] LABS: Glucose Urine UA Negative (Normal); Nitrate Urine Negative (Negative); Specific Gravity, Urine 1.019 (1.005-1.030)
[2025-02-10 16:45] LABS: Add Urine Microscopic? YES
[2025-02-10 17:04] LABS: Hematocrit 42.0 % (36-47); Hemoglobin 13.90 g/dL (11.27-16.99); Mean Corpuscular HGB Conc 33.1 g/dL (30-55); Mean Corpuscular Hemoglobin 29.6 pg (27-33); Mean Corpuscular Volume 89.4 fl (85-98); Nucleated Red Blood Cells % 0 %; Platelet Count 313 10^3/cmm (157-399); Red Blood Count 4.70 10^6/uL (3.85-5.65); White Blood Count 6.97 10^3/uL (3.29-11.43)
[2025-02-10 17:22] LABS: Alanine Aminotransferase 10 U/L (0-33); Albumin Level 4.1 g/dL (3.5-5.2); Alkaline Phosphatase 82 U/L (35-105); Anion Gap 16.0 (5-19); Aspartate Amino Transferase 16 U/L (0-32); Blood Urea Nitrogen 13 mg/dL (8-23); Calcium 9.2 mg/dL (8.5-10.5); Carbon Dioxide 25 mmol/L (22-29); Chloride 102 mmol/L (98-107); Creatinine Clr Calc Pharmacy 70.3021; Globulin 3.5 g/dL (1.3-4.6); Glucose 114 mg/dL (65-115); Osmolality Calculated 289 mOsm/kg (285-295); Potassium 4.0 mmol/L (3.5-5.1); Sodium 139 mmol/L (136-145); Total Protein 7.6 g/dL (6.6-8.7)
--- NOTE | 2025-02-10 18:30 | CTR_ITS ---
PROCEDURE INFORMATION: Exam: CT Abdomen And Pelvis Without Contrast Exam date and time: 02/10/2025 6:43 PM Age: 70 years old Clinical indication: Abdominal pain; Flank; Right; Prior surgery; Surgery date: 6+ months; Surgery type: Tubal; Additional info: Right CVA pain, chills TECHNIQUE: Imaging protocol: Computed tomography of the abdomen and pelvis without contrast. Radiation optimization: All CT scans at this facility use at least one of these dose optimization techniques: automated exposure control; mA and/or kV adjustment per patient size (includes targeted exams where dose is matched to clinical indication); or iterative reconstruction. COMPARISON: CT abdomen pelvis w con* [id number] 10/08/2018 6:45 PM RADIATION DOSE METRICS: Total DLP (mGy-cm): 695.73 FINDINGS: Diaphragm: Small hiatal hernia. Liver: Liver cysts. No suspicious hepatic lesions. Gallbladder and biliary ducts: Normal. No calcified stones. No ductal dilation. Pancreas: Normal. No ductal dilation. Spleen: Normal. No splenomegaly. Adrenal glands: Normal. No mass. Kidneys and ureters: No hydronephrosis or nephrolithiasis in either kidney. Moderate cortical scarring of the left kidney similar to prior. Stomach and bowel: Unremarkable. No obstruction. No mucosal thickening. Appendix: No evidence of appendicitis. Intraperitoneal space: Unremarkable. No free air. No significant fluid collection. Vasculature: Unremarkable. No abdominal aortic aneurysm. Lymph nodes: Unremarkable. No enlarged lymph nodes. Urinary bladder: Unremarkable as visualized. Reproductive: Unremarkable as visualized. Bones/joints: Mild grade 1 retrolisthesis L L2 on L3 and mild multilevel degenerative changes of the thoracolumbar spine similar to prior. Soft tissues: No acute abnormality.. CT/CT kidney stone [id number] IMPRESSION: No acute abnormality in the abdomen or pelvis.
--- NOTE | 2025-02-10 18:41 | W.ED.NAVMDI ---
HPI - Nausea/Vomiting/Diarrhea General: Chief complaint: Nausea/Vomiting/Diarrhea Stated complaint: fatigue, R side back pain, nausea Time Seen by Provider: 02/10/25 18:01 Source: patient Mode of arrival: ambulatory Limitations: no limitations History of Present Illness: Patient is a 7-year-old female who presents the emergency department planing of right flank and back pain beginning last night. Also notes associated nausea and diarrhea, she states that she drank some coffee while at [facility] and this significantly worsened her symptoms. However states that during the waiting room, she had sudden relief of pain, and thinks that she may have passed a kidney stone. She did not report any burning with urination or obvious blood, but does note that her urine has been darker. Reported some chills and states that the pain almost caused her to pass out while checking in at the emergency department, but this has since subsided and she can only feel a slight pulling sensation to the right back. Vitals are stable at this time, she denies personal history of kidney stones. No chest pain or shortness of breath, no palpitations. No diaphoresis, syncopal episodes, lightheadedness, or dizziness. MD elicited complaint: nausea, diarrhea and flank pain Onset (ago): day(s) Associated nausea: Yes Associated abdominal pain: No Location of pain: R flank Pain consistency: now resolved Associated symtoms: Reports nausea; Denies chest pain, diaphoresis, dizziness, dysuria, headache(s) or palpitations Related Data Home Medications ?Medication ?Instructions ?Recorded ?Confirmed magnesium oxide 200 mg PO DAILY 03/01/20 09/07/22 Lactobacillus acidophilus 10 mg PO DAILY 05/15/22 09/07/22 atorvastatin 20 mg tablet 20 mg PO QPM 05/15/22 09/07/22 cholecalciferol (vitamin D3) 25 25 mcg PO DAILY 05/15/22 09/07/22 mcg (1,000 unit) capsule omeprazole 20 mg capsule,delayed 20 mg PO DAILY 05/15/22 09/07/22 release zinc acetate 50 mg (zinc) capsule 50 mg PO DAILY 05/15/22 09/07/22 (Galzin) cefuroxime axetil 500 mg tablet 500 mg PO BID 05/18/22 09/07/22 coQ10 (ubiquinol) 200 mg capsule 200 mg PO DAILY 05/18/22 09/07/22 fluticasone propionate 50 1 spray intranasal QPM 05/18/22 09/07/22 mcg/actuation nasal spray,suspension Previous Rx's ?Medication ?Instructions ?Recorded pimecrolimus 1 % topical cream 1 applic topical BID #60 grams 05/15/22 (Elidel) diclofenac sodium 75 mg 75 mg PO Q12H PRN pain #20 tabs 05/18/22 tablet,delayed release prednisone 20 mg tablet 20 mg PO TID #15 tabs 05/18/22 tizanidine 4 mg tablet 4 mg PO Q8H PRN muscle spasticity 05/18/22 #20 tabs metronidazole 1 % topical gel 1 applic topical DAILY #60 grams 09/07/22 triamcinolone acetonide 0.1 % 1 applic topical BID #15 grams 09/07/22 topical ointment Allergies Allergy/AdvReac Type Severity Reaction Status Date / Time No Known Allergies Allergy Verified 09/07/22 08:29 Review of Systems General: Reports: 10 or more systems reviewed and unremarkable except in HPI and below Const: Reports: chills; Denies: fever(s), change in appetite, change in weight or diaphoresis ENMT: Denies: throat pain or hoarseness Card: Denies: chest pain, palpitations or lightheadedness Resp: Denies: dyspnea, productive cough or wheezing GI: Reports: nausea and diarrhea; Denies: abdominal pain or vomiting : Reports: flank pain; Denies: difficulty voiding, dysuria, urinary frequency, urinary urgency or hematuria Musc: Reports: back pain; Denies: neck pain Skin/Breast: Denies: rash or new lesions Neuro: Denies: headache(s) or dizziness PFSH ED PFSH: Medical History GERD (gastroesophageal reflux disease) Surgical History History of foot surgery bunionectomy left foot, hammer toe correction left foot Social History Smoking and tobacco/nicotine status: never used tobacco/nicotine Alcohol intake: never Substance/Drug Use: never Current occupational status: retired Physical Exam Const: COMMON NORMALS: no acute distress, average body habitus, patient oriented x3, no limitations, healthy appearing, alert and well nourished GENERAL APPEARANCE: cooperative and comfortable ORIENTATION/CONSCIOUSNESS: Yes awake OTHER: Nontoxic-appearing Neck/C-Spine: COMMON NORMALS: full ROM, supple, no meningeal signs and no JVD Resp: COMMON NORMALS: normal respiratory effort, No retractions, No use of accessory muscles and clear to auscultation bilaterally AUSCULTATION: clear to auscultation bilaterally, no crackles, no rales, no rhonchi and no wheezes Cardio: COMMON NORMALS: no JVD, regular rate, regular rhythm, S1 normal heart sound present, S2 normal heart sound present, No gallops present (Cardio), No clicks present (Cardio), No murmurs present (Cardio), No rub (Cardio) and Peripheral pulses 2+ throughout RATE: regular rate RHYTHM: regular rhythm HEART SOUNDS: S1 normal heart sound present and S2 normal heart sound present PERIPHERAL PULSES: Peripheral pulses 2+ throughout GI: COMMON NORMALS: Normal to inspection, nondistended, normoactive bowel sounds present, Soft to palpation, non-tender, No hepatosplenomegaly present and no masses AUSCULTATION: Yes normoactive bowel sounds PALPATION: Yes Soft to palpation, No Guarding due to palpation present (GI), No Rigid due to palpation and Yes No hepatosplenomegaly present RECTAL EXAM: deferred : COMMON NORMALS: Yes no CVA tenderness BLADDER/KIDNEY EXAM: Yes no CVA tenderness Back/Pelvis: COMMON NORMALS: no CVA tenderness Extremity: COMMON NORMALS: normal to inspection and full ROM Neuro: COMMON NORMALS: patient oriented x3, moves all extremities, no focal motor deficits and no sensory deficits noted SENSORIUM/ORIENTATION: Yes alert MENINGEAL SIGNS: Yes no meningeal signs Psych: COMMON NORMALS: mental status grossly normal, cooperative and speech normal SPEECH: Yes normal speech Skin: COMMON NORMALS: no rashes or lesions noted GENERAL SKIN EXAM: no rashes or lesions noted Course Vital Signs: Vital signs: Vital Signs Temperature 98.2 F 02/10/25 16:24 Pulse Rate 89 02/10/25 16:24 Respiratory Rate 17 02/10/25 16:24 Blood Pressure 120/79 02/10/25 16:24 Pulse Oximetry 96 02/10/25 16:24 Oxygen Delivery Me thod Room Air 02/10/25 16:24 MDM - Nausea/Vomiting/Diarrhea Medical Decision Making Patient presenting with right flank pain associated with nausea and diarrhea, chills, and states that she thought she was going to pass out when she was checking to the emergency department. At my time of examination, however, she states that she is asymptomatic as she had spontaneous resolution of symptoms while in the waiting room. Her vitals are stable and overall the physical exam unremarkable. She states that she believes she passed a kidney stone, does not report any history of kidney stones. Her lab work was reassuring, urinalysis clean of any infection. Abdomen pelvis CT noncontrast does not demonstrate any acute abnormality, and she remains asymptomatic at reevaluation and is requesting to leave and go home. Could be musculoskeletal, she could have passed a stone, but regardless this is benign and she does not need further workup in the emergency department at this time. Will be allowed discharge home with general return precautions. Lab Data 02/10/25 16:58 02/10/25 16:58 Radiology Impressions Abdomen/Pelvis CT 02/10/25 18:30 IMPRESSION: No acute abnormality in the abdomen or pelvis. Laboratory Results WBC 6.97 10^3/uL (3.29-11.43) 02/10/25 16:58 RBC 4.70 10^6/uL (3.85-5.65) 02/10/25 16:58 Hgb 13.90 g/dL (11.27-16.99) 02/10/25 16:58 Hct 42.0 % (36-47) 02/10/25 16:58 MCV 89.4 fl (85-98) 02/10/25 16:58 MCH 29.6 pg (27-33) 02/10/25 16:58 MCHC 33.1 g/dL (30-55) 02/10/25 16:58 RDW 13.8 % (12.1-15.1) 02/10/25 16:58 Plt Count 313 10^3/cmm (157-399) 02/10/25 16:58 MPV 9.1 fL (7.4-10.4) 02/10/25 16:58 Neut % (Auto) 76.3 % 02/10/25 16:58 Lymph % (Auto) 17.4 % 02/10/25 16:58 Appling % (Auto) 4.9 % 02/10/25 16:58 Eos % (Auto) 0.7 % 02/10/25 16:58 Baso % (Auto) 0.4 % 02/10/25 16:58 Neut # (Auto) 5.32 10^3/uL (1.8-7.7) 02/10/25 16:58 Lymph # (Auto) 1.2 10^3/uL (0.8-4.8) 02/10/25 16:58 Appling # (Auto) 0.3 10^3/uL (0.2-0.9) 02/10/25 16:58 Eos # (Auto) 0.1 10^3/uL (0.0-0.8) 02/10/25 16:58 Baso # (Auto) 0.0 10^3/uL (0.0-0.1) 02/10/25 16:58 Nucleated RBC % (auto) 0 % 02/10/25 16:58 Nucleated RBCs # 0.0 /100WBC 02/10/25 16:58 Sodium 139 mmol/L (136-145) 02/10/25 16:58 Potassium 4.0 mmol/L (3.5-5.1) 02/10/25 16:58 Chloride 102 mmol/L (98-107) 02/10/25 16:58 Carbon Dioxide 25 mmol/L (22-29) 02/10/25 16:58 Anion Gap 16.0 (5-19) 02/10/25 16:58 BUN 13 mg/dL (8-23) 02/10/25 16:58 Creatinine 0.6 mg/dL (0.5-0.9) 02/10/25 16:58 GFR Calculation 98.8 mL/min (90-130) 02/10/25 16:58 Glucose 114 mg/dL (65-115) 02/10/25 16:58 Calculated Osmolality 289 mOsm/kg (285-295) 02/10/25 16:58 Calcium 9.2 mg/dL (8.5-10.5) 02/10/25 16:58 Total Bilirubin 0.4 mg/dL (0.15-1.2) 02/10/25 16:58 AST 16 U/L (0-32) 02/10/25 16:58 ALT 10 U/L (0-33) 02/10/25 16:58 Alkaline Phosphatase 82 U/L (35-105) 02/10/25 16:58 Total Protein 7.6 g/dL (6.6-8.7) 02/10/25 16:58 Albumin 4.1 g/dL (3.5-5.2) 02/10/25 16:58 Globulin 3.5 g/dL (1.3-4.6) 02/10/25 16:58 Urine Color Yellow (Yellow) 02/10/25 16:34 Urine Appearance Clear (CLEAR) 02/10/25 16:34 Urine pH 7.0 (5-7) 02/10/25 16:[address] 1.019 (1.005-1.030) 02/10/25 16:34 Urine Protein Negative (Negative) 02/10/25 16:34 Urine Glucose (UA) Negative (Normal) 02/10/25 16:34 Urine Ketones Trace (Negative) 02/10/25 16:34 Urine Blood Negative (Negative) 02/10/25 16:34 Urine Nitrate Negative (Negative) 02/10/25 16:34 Urine Bilirubin Negative (Negative) 02/10/25 16:34 Urine Urobilinogen 1.0 mg/dL (Negative) 02/10/25 16:34 Ur Leukocyte Esterase Negative (Negative) 02/10/25 16:34 Urine RBC 0-2 /hpf (0-2) 02/10/25 16:34 Urine WBC 0-5 /hpf (0-5) 02/10/25 16:34 Ur Squamous Epith Cells 0-5 /hpf (0-5) 02/10/25 16:34 Amorphous Sediment Not Reportable 02/10/25 16:34 Urine Bacteria None seen /hpf (NONE) 02/10/25 16:34 Hyaline Casts 0-4 /lpf H 02/10/25 16:34 All radiology interpretation(s) finalized by discharge Discharge Plan Discharge Patient Disposition: Home Clinical Impression: Ureterolithiasis Condition: Stable Prescriptions: No Action magnesium oxide 200 mg magnesium tablet,chewable 200 mg PO DAILY atorvastatin 20 mg tablet 20 mg PO QPM cholecalciferol (vitamin D3) 25 mcg (1,000 unit) capsule 25 mcg PO DAILY Lactobacillus acidophilus Capsule 10 mg PO DAILY omeprazole 20 mg capsule,delayed release(DR/EC) 20 mg PO DAILY Galzin 50 mg (zinc) capsule 50 mg PO DAILY pimecrolimus [Elidel] 1 % cream 1 applic topical BID Qty: 60 1RF Rx Instructions: Apply to affected area on face twice daily as needed metronidazole 1 % gel 1 applic topical DAILY Qty: 60 6RF Rx Instructions: Apply thin film to entire face daily triamcinolone acetonide 0.1 % ointment 1 applic topical BID Qty: 15 1RF Rx Instructions: Apply to affected areas twice daily, as needed. cefuroxime axetil 500 mg tablet 500 mg PO BID fluticasone propionate 50 mcg/actuation spray,suspension 1 spray INTRANASAL QPM coQ10 (ubiquinol) 200 mg Capsule 200 mg PO DAILY tizanidine 4 mg tablet 4 mg PO Q8H PRN (Reason: muscle spasticity) Qty: 20 0RF prednisone 20 mg tablet 20 mg PO TID Qty: 15 0RF Rx Instructions: 1 p.o. 3 times daily x3 days, 1 p.o. twice daily x2 days, 1 p.o. daily x2 days diclofenac sodium 75 mg tablet,delayed release (DR/EC) 75 mg PO Q12H PRN (Reason: pain) Qty: 20 0RF Discharge Orders: Discharge ED (Routine); Ordered 02/10/25 Ordered By: Avni Sheridan Referrals: James Velazquez DO [Primary Care Provider, Family Practice] Patient Instructions: Patient Portal & Jace Instructions Activity Restrictions/Additional Instructions: Motrin and Tylenol for any pain. Drink plenty of water. Please follow-up with primary care. Return with any recurrence of symptoms or any new or worsening. Print Language: Mexican Coding Level of Care Code ED [employer] for Zonia Alexandra
== END 2025-02-10 20:33 | disposition home or self-care (01) ==
PROVIDERS: Family Medicine; Emergency Provider Physician Assistant; PCP Electrodiagnostic Medicine
DX: N20.1 Calculus of ureter (principal)
CPT/HCPCS: 36415; 74176; 80053; 81001; 85025; 99284

== ENCOUNTER 2025-03-10 07:55 | Emergency (ER) | payer MEDICARE, SELFPAY ==
[2025-03-10 07:55] VITALS: BP 150/87; PULSE 74; RESP 17; TEMP 36.3; O2SAT 99; BMI 28.8
--- NOTE | 2025-03-10 08:08 | W.ED.FEMALGU ---
HPI - Female Genitourinary General: Chief complaint: Urogenital-Female Stated complaint: HX UTI, Poss Kidney Stone Source: patient Mode of arrival: ambulatory Limitations: no limitations History of Present Illness: 70-year-old female who states that she has been having off-and-on right flank pain over the last 2 to 3 weeks was seen here 2 weeks ago she states she was diagnosed with a kidney stone but reviewing her visit her CT was normal. States that her PCP had seen her last week and diagnosed with UTI and started on antibiotics states she had taken 3 days worth and had stopped. States that she has been having chills nausea she denies any pain currently denies any fever currently has had no vomiting denies any abdominal pain Associated symptoms: Reports nausea Related Data Home Medications ?Medication ?Instructions ?Recorded ?Confirmed magnesium oxide 200 mg PO DAILY 03/01/20 09/07/22 Lactobacillus acidophilus 10 mg PO DAILY 05/15/22 09/07/22 atorvastatin 20 mg tablet 20 mg PO QPM 05/15/22 09/07/22 cholecalciferol (vitamin D3) 25 25 mcg PO DAILY 05/15/22 09/07/22 mcg (1,000 unit) capsule omeprazole 20 mg capsule,delayed 20 mg PO DAILY 05/15/22 09/07/22 release zinc acetate 50 mg (zinc) capsule 50 mg PO DAILY 05/15/22 09/07/22 (Galzin) cefuroxime axetil 500 mg tablet 500 mg PO BID 05/18/22 09/07/22 coQ10 (ubiquinol) 200 mg capsule 200 mg PO DAILY 05/18/22 09/07/22 fluticasone propionate 50 1 spray intranasal QPM 05/18/22 09/07/22 mcg/actuation nasal spray,suspension Previous Rx's ?Medication ?Instructions ?Recorded pimecrolimus 1 % topical cream 1 applic topical BID #60 grams 05/15/22 (Elidel) diclofenac sodium 75 mg 75 mg PO Q12H PRN pain #20 tabs 05/18/22 tablet,delayed release prednisone 20 mg tablet 20 mg PO TID #15 tabs 05/18/22 tizanidine 4 mg tablet 4 mg PO Q8H PRN muscle spasticity 05/18/22 #20 tabs metronidazole 1 % topical gel 1 applic topical DAILY #60 grams 09/07/22 triamcinolone acetonide 0.1 % 1 applic topical BID #15 grams 09/07/22 topical ointment Allergies Allergy/AdvReac Type Severity Reaction Status Date / Time No Known Allergies Allergy Verified 09/07/22 08:29 Review of Systems GI: Reports: nausea PFSH ED PFSH: Medical History (Updated 03/10/25 @ 09:20 by Vidal Atkins MD) GERD (gastroesophageal reflux disease) Surgical History History of foot surgery bunionectomy left foot, hammer toe correction left foot Social History Smoking and tobacco/nicotine status: never used tobacco/nicotine Alcohol intake: never Substance/Drug Use: never Current occupational status: retired Physical Exam Const: COMMON NORMALS: no acute distress, patient oriented x3 and healthy appearing HENMT: COMMON NORMALS: normocephalic and atraumatic HEAD & SCALP: normocephalic and atraumatic Eye: COMMON NORMALS: Equal, round and reactive pupils present and EOMs intact bilaterally PUPIL: Yes Equal, round and reactive pupils present Neck/C-Spine: COMMON NORMALS: full ROM and supple Chest: COMMONS NORMALS: normal inspection of the chest and normal palpation of entire chest wall Resp: COMMON NORMALS: normal respiratory effort, No retractions, No use of accessory muscles and clear to auscultation bilaterally AUSCULTATION: clear to auscultation bilaterally Cardio: COMMON NORMALS: regular rate, regular rhythm and No murmurs present (Cardio) RATE: regular rate RHYTHM: regular rhythm GI: COMMON NORMALS: Normal to inspection, nondistended, normoactive bowel sounds present, Soft to palpation, non-tender and no masses PALPATION: Yes Soft to palpation Extremity: COMMON NORMALS: normal to inspection and full ROM Neuro: COMMON NORMALS: patient oriented x3, moves all extremities and no focal motor deficits Psych: COMMON NORMALS: mental status grossly normal, Normal thought process present and cooperative THOUGHT PROCESS: Normal thought process present Skin: COMMON NORMALS: no rashes or lesions noted and no wounds GENERAL SKIN EXAM: no rashes or lesions noted Course Vital Signs: Vital signs: Vital Signs Temperature 97.3 F L 03/10/25 07:55 Pulse Rate 68 03/10/25 09:21 Respiratory Rate 17 10/14/25 07:55 Blood Pressure 140/85 03/10/25 09:21 Pulse Oximetry 93 03/10/25 09:21 Oxygen Delivery Me thod Room Air 03/10/25 07:55 MDM - Female Medical Decision Making Patient presents here with some generalized weakness malaise and concerned of having urinary tract infection. Vitals here are all normal abdominal exam here is benign. She has no pain she has no signs of acute appendicitis, diverticulitis or small bowel obstruction. Did review her urinalysis showed no signs of UTI or pyelonephritis. I reviewed her CT scan she had done on February 10 and that showed no acute abnormalities does not need a repeat scan at this time. Vital signs here are all been normal did go over all of her lab work and vitals informed her she is stable for discharge she is to follow-up with PCP and return if worsening she understands agrees to plan. Medical Records I reviewed the patient's medical records. Lab Data I reviewed the patient's lab results. 03/10/25 07:19 03/10/25 08:37 Laboratory Results WBC 5.31 10^3/uL (3.29-11.43) 03/10/25 07:19 RBC 5.01 10^6/uL (3.85-5.65) 03/10/25 07:19 Hgb 14.80 g/dL (11.27-16.99) 03/10/25 07:19 Hct 43.7 % (36-47) 03/10/25 07:19 MCV 87.2 fl (85-98) 03/10/25 07:19 MCH 29.5 pg (27-33) 03/10/25 07:19 MCHC 33.9 g/dL (30-55) 03/10/25 07:19 RDW 13.5 % (12.1-15.1) 03/10/25 07:19 Plt Count 357 10^3/cmm (157-399) 03/10/25 07:19 MPV 9.5 fL (7.4-10.4) 03/10/25 07:19 Neut % (Auto) 39.0 % 03/10/25 07:19 Lymph % (Auto) 53.5 % 03/10/25 07:19 [place] % (Auto) 6.0 % 03/10/25 07:19 Eos % (Auto) 0.4 % 03/10/25 07:19 Baso % (Auto) 1.1 % 03/10/25 07:19 Neut # (Auto) 2.07 10^3/uL (1.8-7.7) 03/10/25 07:19 Lymph # (Auto) 2.8 10^3/uL (0.8-4.8) 03/10/25 07:19 [place] # (Auto) 0.3 10^3/uL (0.2-0.9) 03/10/25 07:19 Eos # (Auto) 0.0 10^3/uL (0.0-0.8) 03/10/25 07:19 Baso # (Auto) 0.1 10^3/uL (0.0-0.1) 03/10/25 07:19 Nucleated RBC % (auto) 0 % 03/10/25 07:19 Nucleated RBCs # 0.0 /100WBC 03/10/25 07:19 Sodium 136 mmol/L (136-145) 03/10/25 08:37 Potassium 4.1 mmol/L (3.5-5.1) 03/10/25 08:37 Chloride 100 mmol/L (98-107) 03/10/25 08:37 Carbon Dioxide 22 mmol/L (22-29) 03/10/25 08:37 Anion Gap 18.1 (5-19) 03/10/25 08:37 BUN 8 mg/dL (8-23) 03/10/25 08:37 Creatinine 0.5 mg/dL (0.5-0.9) 03/10/25 08:37 GFR Calculation 122.0 mL/min (90-130) 03/10/25 08:37 Glucose 88 mg/dL (65-115) 03/10/25 08:37 Calculated Osmolality 280 mOsm/kg (285-295) L 03/10/25 08:37 Calcium 9.4 mg/dL (8.5-10.5) 03/10/25 08:37 Total Bilirubin 0.6 mg/dL (0.15-1.2) 03/10/25 08:37 AST 14 U/L (0-32) 03/10/25 08:37 ALT 10 U/L (0-33) 03/10/25 08:37 Alkaline Phosphatase 75 U/L (35-105) 03/10/25 08:37 Total Protein 7.2 g/dL (6.6-8.7) 03/10/25 08:37 Albumin 4.0 g/dL (3.5-5.2) 03/10/25 08:37 Globulin 3.2 g/dL (1.3-4.6) 03/10/25 08:37 Lipase 39 U/L (13-60) 03/10/25 08:37 Urine Color Yellow (Yellow) 03/10/25 08:12 Urine Appearance Clear (CLEAR) 03/10/25 08:12 Urine pH 7.5 (5-7) 03/10/25 08:12 Ur Specific Qulin 1.014 (1.005-1.030) 03/10/25 08:12 Urine Protein Negative (Negative) 03/10/25 08:12 Urine Glucose (UA) Negative (Normal) 03/10/25 08:12 Urine Ketones Trace (Negative) 03/10/25 08:12 Urine Blood Negative (Negative) 03/10/25 08:12 Urine Nitrate Negative (Negative) 03/10/25 08:12 Urine Bilirubin Negative (Negative) 03/10/25 08:12 Urine Urobilinogen 0.2 mg/dL (Negative) 03/10/25 08:12 Ur Leukocyte Esterase 1+ (Negative) A 03/10/25 08:12 Urine RBC Rare /hpf (0-2) 03/10/25 08:12 Urine WBC 0-4 /hpf (0-5) H 03/10/25 08:12 Ur Squamous Epith Cells Rare /hpf (0-5) 03/10/25 08:12 Amorphous Sediment Not Reportable 03/10/25 08:12 Urine Bacteria Trace /hpf (NONE) 03/10/25 08:12 Hyaline Casts 0-4 /lpf H 03/10/25 08:12 No radiology studies performed this visit Discharge Plan Discharge Patient Disposition: Home Clinical Impression: Generalized weakness Condition: Stable Prescriptions: No Action magnesium oxide 200 mg magnesium tablet,chewable 200 mg PO DAILY atorvastatin 20 mg tablet 20 mg PO QPM cholecalciferol (vitamin D3) 25 mcg (1,000 unit) capsule 25 mcg PO DAILY Lactobacillus acidophilus Capsule 10 mg PO DAILY omeprazole 20 mg capsule,delayed release(DR/EC) 20 mg PO DAILY Galzin 50 mg (zinc) capsule 50 mg PO DAILY pimecrolimus [Elidel] 1 % cream 1 applic topical BID Qty: 60 1RF Rx Instructions: Apply to affected area on face twice daily as needed metronidazole 1 % gel 1 applic topical DAILY Qty: 60 6RF Rx Instructions: Apply thin film to entire face daily triamcinolone acetonide 0.1 % ointment 1 applic topical BID Qty: 15 1RF Rx Instructions: Apply to affected areas twice daily, as needed. cefuroxime axetil 500 mg tablet 500 mg PO BID fluticasone propionate 50 mcg/actuation spray,suspension 1 spray INTRANASAL QPM coQ10 (ubiquinol) 200 mg Capsule 200 mg PO DAILY tizanidine 4 mg tablet 4 mg PO Q8H PRN (Reason: muscle spasticity) Qty: 20 0RF prednisone 20 mg tablet 20 mg PO TID Qty: 15 0RF Rx Instructions: 1 p.o. 3 times daily x3 days, 1 p.o. twice daily x2 days, 1 p.o. daily x2 days diclofenac sodium 75 mg tablet,delayed release (DR/EC) 75 mg PO Q12H PRN (Reason: pain) Qty: 20 0RF Discharge Orders: Discharge ED (Routine); Ordered 03/10/25 Ordered By: Vidal Atkins Referrals: James Velazquez DO [Primary Care Provider, Family Practice] - 4-7 days Discharge Diet: Advance as tolerated Discharge Activity: Resume usual activity Patient Instructions: Weakness (ED) Print Language: Turkmen Coding Level of Care Code ED Welder 2Nd Shift for Zonia Alexandra
[2025-03-10 08:10] LABS: Hematocrit 43.7 % (36-47); Hemoglobin 14.80 g/dL (11.27-16.99); Mean Corpuscular HGB Conc 33.9 g/dL (30-55); Mean Corpuscular Hemoglobin 29.5 pg (27-33); Mean Corpuscular Volume 87.2 fl (85-98); Nucleated Red Blood Cells % 0 %; Platelet Count 357 10^3/cmm (157-399); Red Blood Count 5.01 10^6/uL (3.85-5.65); White Blood Count 5.31 10^3/uL (3.29-11.43)
--- OUTSIDE RECORDS SUMMARY | 2025-03-10 08:13 | XMS_ITS | Data Portability ---
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 I was present during interview and exam. I have reviewed and agree with above documentation. Dr. Dante Jose. [email or web address] Not available 01/16/2024 08:34:08 10/22/2024 10/22/2024 A Care Coordination Assessment form was filled out as part of this patient's office visit today. [email or web address] Not available 10/28/2024 16:40:59 03/02/2025 03/02/2025 Document scribed by Salud Almonte. I was present during interview and exam. I have reviewed and agree with above documentation. Dr. Dante Jose. [email or web address] Not available 03/02/2025 15:16:25 Plan of Treatment Reminders Order Date Submit Date Provider Last Modified By Organization Details Last Modified Time Details Appointments RECHECK 10 2024 10:00A Felecia Jose, DO Not available Not available Not available OFFICE VISIT 20 2024 07:20A Felecia Jose, DO Not available Not available Not available Lab urinalysi s, complete 2024 025 [email or web address] [facility], [address], [address], [place], [address], 03/02/2025 18:50:25 culture, urine 2024 025 [facility], [address] [place] [address], [address], [place], [address], 03/04/2025 02:58:21 CMP, serum or plasma 2024 025 [facility], [address], [address], [place], [address], 10/22/2024 12:16:42 lipid panel, blood 2024 025 [facility], [address], [address], [place], [address], 10/22/2024 12:16:44 CBC 2024 025 [facility], [address], [address], [place], [address], 10/22/2024 11:39:38 CMP, serum or plasma 2023 024 [email or web address] 7 [facility], [address], [address], [place], [address], 01/16/2024 11:28:28 CBC 2023 024 [email or web address] 7 [facility], [address], [address], [place], [address], 01/16/2024 11:28:28 rf (rheumato id factor), serum 2023 024 [facility], [address] [place] [address], [address], [place], [address], 01/19/2024 09:18:48 CMP, serum or plasma 2023 024 [email or web address] 7 [facility], [address], [address], [place], [address], 10/09/2023 13:25:06 lipid panel, blood 2023 024 [email or web address] 7 [facility], [address], [address], [place], [address], 10/09/2023 13:25:06 CBC 2023 024 [email or web address] 7 [facility], [address], [address], [place], [address], 10/09/2023 13:25:06 rf (rheumato id factor), serum 2023 024 [facility], [address] [place] [address], [facility] [address] [place], [address], 10/11/2023 13:42:01 Referral None recorded. Procedures None recorded. Surgeries None recorded. Imaging None recorded. Medication Orders Cipro 500 mg tablet [address] [id number], [address], [place], [place], [id number], 03/02/2025 18:50:25 omeprazol e 20 mg capsule,d elayed release 2024 025 [facility], [address], [address], [place], [id number], 10/22/2024 10:53:26 cyclobenz aprine 10 mg tablet 2024 025 [facility], [address] [place] [address], [facility] [address], [place], [place], [id number], 10/23/2024 15:34:17 Patient TargetsNo targets recorded. Patient InstructionsNo instructions recorded. Reason for Referral None Reported. Results Created Date Observation Date Name Description Value Unit Range Abnormal Flag Note LastModifiedBy Organization Detail LastModifiedTime 10/09/19 24 10/09/2023 CBC WBC 4.9 x10 4.0-10 .5 Not Available [facility] [address], [place], [address], 10/09/2023 10:18:28 10/09/19 24 10/09/2023 CBC RBC 4.21 x10 3.50-5 .50 Not Available [facility] [address], [place], [address], 10/09/2023 10:18:28 10/09/19 24 10/09/2023 CBC HGB 13.0 g/dL 12.0-1 6.0 Not Available [facility] [address] [facility] 1, [place], [address], 10/09/2023 10:18:28 10/09/19 24 10/09/2023 CBC HCT 37.8 % 37.0-4 7.0 Not Available [facility] [address] [facility] 1, [place], [address], 10/09/2023 10:18:28 10/09/19 24 10/09/2023 CBC MCV 89.9 fL 80.0-9 9.9 Not Available [facility] [address] [facility] 1, [place], [address], 10/09/2023 10:18:28 10/09/19 24 10/09/2023 CBC MCH 31.0 pg 27.0-3 2.0 Not Available [facility] [address], [place], [address], 10/09/2023 10:18:28 10/09/19 24 10/09/2023 CBC MCHC 34.5 g/dL 32.0-3 6.0 Not Available [facility] [address] [facility] 1, [place], [address], 10/09/2023 10:18:28 10/09/19 24 10/09/2023 CBC RDW 14.3 % 11.5-1 4.5 Not Available [facility] [address] [facility] 1, [place], [address], 10/09/2023 10:18:28 10/09/19 24 10/09/2023 CBC plt 307.9 x10 140.0- 451.0 Not Available [facility] [address] [facility] 1, [place], [address], 10/09/2023 10:18:28 10/09/19 24 10/09/2023 CBC lymphocytes % 52.9 % 20.0-5 0.0 high Not Available [facility] [address] [facility] 1, [place], [address], 10/09/2023 10:18:28 10/09/19 24 10/09/2023 CBC granulcytes % 38.6 % 30.0-7 0.0 Not Available [facility] [address] [facility] 1, [place], [address], 10/09/2023 10:18:28 10/09/19 24 10/09/2023 CBC monocytes % 6.8 % 2.0-10 .0 Not Available [facility] [address] [facility] 1, [place], [address], 10/09/2023 10:18:28 10/09/19 24 10/09/2023 CBC granulcytes# 1.9 x10 Not Naina ilable [facility] [address] [facility] 1, [place], [address], 10/09/2023 10:18:28 10/09/19 24 10/09/2023 CBC lymphocytes # 2.6 x10 Not Available [facility] [address] [facility] 1, [place], [address], 10/09/2023 10:18:28 10/09/19 24 10/09/2023 CBC monocytes # 0.3 x10 Not [facility] [address] [facility] 1, [place], [address], 10/09/2023 10:18:28 10/09/19 24 10/09/2023 CMP (FEMA LE) glucose 85.0 mg/dL 60.0-9 9.0 Not Available [facility] [address] [facility] 1, [place], [address], 10/09/2023 11:33:42 10/09/19 24 10/09/2023 CMP (FEMA LE) BUN (blood urea nitrogen) 10.0 mg/dL 10.0-2 6.0 Not Available [facility] [address] [facility] 1, [place], [address], 10/09/2023 11:33:42 10/09/19 24 10/09/2023 CMP (FEMA LE) creatinine (serum) 0.6 mg/dL 0.4-1. 5 Not Available [facility] [address] [facility] [address], [place], [address], 10/09/2023 11:33:42 10/09/19 24 10/09/2023 CMP (FEMA LE) BUN/creatini ne ratio 15.63 ratio Not Available [facility] [address] [facility] 1, [place], [address], 10/09/2023 11:33:42 10/09/19 24 10/09/2023 CMP (FEMA LE) eGFR calculated 98.1 Not Available [facility] [address] [facility] 1, [place], [address], 10/09/2023 11:33:42 10/09/19 24 10/09/2023 CMP (FEMA LE) total protein 7.2 g/dL 6.0-8. 5 Not Available [facility] [address] [facility] 1, [place], [address], 10/09/2023 11:33:42 10/09/19 24 10/09/2023 CMP (FEMA LE) total bilirubin 0.6 mg/dL 0.2-1. 3 Not Available [facility] [address] [facility], [place], [address], 10/09/2023 11:33:42 10/09/19 24 10/09/2023 CMP (FEMA LE) albumin 4.0 g/dL 3.5-5. 5 Not Available [facility] [address] [facility] [address], [place], [address], 10/09/2023 11:33:42 10/09/19 24 10/09/2023 CMP (FEMA LE) globulin 3.2 calc Not Available [facility] [address] [facility] [address], [place], [address], 10/09/2023 11:33:42 10/09/19 24 10/09/2023 CMP (FEMA LE) AST (SGOT) 28.0 U/L 0.0-46 .0 Not Available [facility] [address] [facility] 1, [place], [address], 10/09/2023 11:33:42 10/09/19 24 10/09/2023 CMP (FEMA LE) altv (SGPT) 25.0 U/L 13.0-6 9.0 normal Not Available [facility] [address] [facility], [place], [address], 10/09/2023 11:33:42 10/09/19 24 10/09/2023 CMP (FEMA LE) A/G ratio 1.3 ratio Not Available [facility] [address] [facility] 1, [place], [address], 10/09/2023 11:33:42 10/09/19 24 10/09/2023 CMP (FEMA LE) ALP phos 84.0 U/L 30.0-1 40.0 normal Not Available [facility] [address] [facility] 1, [place], [address], 10/09/2023 11:33:42 10/09/19 24 10/09/2023 CMP (FEMA LE) calcium 9.3 mg/dL 8.4-10 .5 Not Available [facility] [address] [facility] 1, [place], [address], 10/09/2023 11:33:42 10/09/19 24 10/09/2023 CMP (FEMA LE) sodium 144.0 mmol/ L 136.0- 145.0 Not Available [facility] [address] [facility] 1, [place], [address], 10/09/2023 11:33:42 10/09/19 24 10/09/2023 CMP (FEMA LE) potassium 4.2 mmol/ L 3.5-5. 1 Not Available [facility] [address] [facility] 1, [place], [address], 10/09/2023 11:33:42 10/09/19 24 10/09/2023 CMP (FEMA LE) chloride 112.0 mmol/ L 98.0-1 10.0 abnormal Not Available [facility] [address] [facility] 1, [place], [address], 10/09/2023 11:33:42 10/09/19 24 10/09/2023 CMP (FEMA LE) C02 27.0 mmol/ L 22.0-3 1.0 Not Available [facility] [address] [facility], [place], [address], 10/09/2023 11:33:42 10/09/19 24 10/09/2023 CMP (FEMA LE) anion gap 5.0 calc Not Available [facility] [address] [facility] 1, [place], [address], 10/09/2023 11:33:42 10/09/19 24 10/09/2023 CMP (FEMA LE) osmolality 295.6 calc Not Available [facility] [address] [facility] 1, [place], [address], 10/09/2023 11:33:42 10/09/19 24 10/09/2023 LIPID PROFI LE (FEMA LE) cholesterol 140.0 mg/dL 0.0-20 0.0 Not Available [facility] [address] [facility] 1, [place], [address], 10/09/2023 11:33:44 10/09/19 24 10/09/2023 LIPID PROFI LE (FEMA LE) trig 107.0 mg/dL 0.0-15 0.0 Not Available [facility] [address] [facility] 1, [place], [address], 10/09/2023 11:33:44 10/09/19 24 10/09/2023 LIPID PROFI LE (FEMA LE) HDL - direct 43.0 mg/dL >40.0 Not Available [facility] [address] [facility] 1, [place], [address], 10/09/2023 11:33:44 10/09/19 24 10/09/2023 LIPID PROFI LE (FEMA LE) VLDL - direct 21.4 mg/dL Not Available [facility] [address] [facility] 1, [place], [address], 10/09/2023 11:33:44 10/09/19 24 10/09/2023 LIPID PROFI LE (FEMA LE) LDL - direct 75.6 mg/dL 0.0-13 0.0 Not Available [facility] [address] [facility] 1, [place], [address], 10/09/2023 11:33:44 10/09/19 24 10/11/2023 RHEUM ATOID FACTO R rheumatoid factor >650 IU/mL <14 high Verif ied by repea t bebe sis. Not Available [facility] [address] [place], [address], 10/11/2023 13:42:01 01/16/20 24 01/16/2024 CBC WBC 4.7 x10 4.0-10 .5 Not Available [facility] [address] [facility], [place], [address], 01/16/2024 09:25:45 01/16/20 24 01/16/2024 CBC RBC 4.54 x10 3.50-5 .50 Not Available [facility] [address] [facility] 1, [place], [address], 01/16/2024 09:25:45 01/16/20 24 01/16/2024 CBC HGB 13.7 g/dL 12.0-1 6.0 Not Available [facility] [address] [facility] 1, [place], [address], 01/16/2024 09:25:45 01/16/20 24 01/16/2024 CBC HCT 39.8 % 37.0-4 7.0 Not Available [facility] [address] [facility] 1, [place], [address], 01/16/2024 09:25:45 01/16/20 24 01/16/2024 CBC MCV 87.7 fL 80.0-9 9.9 Not Available [facility] [address] [facility] 1, [place], [address], 01/16/2024 09:25:45 01/16/20 24 01/16/2024 CBC MCH 30.1 pg 27.0-3 2.0 Not Available [facility] [address] [facility] 1, [place], [address], 01/16/2024 09:25:45 01/16/20 24 01/16/2024 CBC MCHC 34.3 g/dL 32.0-3 6.0 Not Available [facility] [address] [facility] 1, [place], [address], 01/16/2024 09:25:45 01/16/20 24 01/16/2024 CBC RDW 14.4 % 11.5-1 4.5 Not Available [facility] [address] [facility] 1, [place], [address], 01/16/2024 09:25:45 01/16/20 24 01/16/2024 CBC plt 297.7 x10 140.0- 451.0 Not Available [facility] [address] [facility] 1, [place], [address], 01/16/2024 09:25:45 01/16/20 24 01/16/2024 CBC lymphocytes % 46.7 % 20.0-5 0.0 Not Available [facility] [address] [facility] 1, [place], [address], 01/16/2024 09:25:45 01/16/20 24 01/16/2024 CBC granulcytes % 42.6 % 30.0-7 0.0 Not Available [facility] [address] [facility] 1, [place], [address], 01/16/2024 09:25:45 01/16/20 24 01/16/2024 CBC monocytes % 8.6 % 2.0-16 .0 Not Available [facility] [address] [address], [place], [address], 01/16/2024 09:25:45 01/16/20 24 01/16/2024 CBC granulcytes# 2.0 x10 Not Naina ilable [facility] [address] [address], [place], [address], 01/16/2024 09:25:45 01/16/20 24 01/16/2024 CBC lymphocytes # 2.2 x10 Not Available [facility] [address] [address], [place], [address], 01/16/2024 09:25:45 01/16/20 24 01/16/2024 CBC monocytes # 0.4 x10 Not Avai lable [facility] [address] [address], [place], [address], 01/16/2024 09:25:45 01/16/20 24 01/16/2024 CMP (FEMA LE) glucose 92.0 mg/dL 60.0-9 9.0 Not Available [facility] [address] [address], [place], [address], 01/16/2024 09:47:39 01/16/20 24 01/16/2024 CMP (FEMA LE) BUN (blood urea nitrogen) 14.0 mg/dL 10.0-2 6.0 Not Available [facility] [address] [address], [place], [address], 01/16/2024 09:47:39 01/16/20 24 01/16/2024 CMP (FEMA LE) creatinine (serum) 0.7 mg/dL 0.4-1. 5 Not Available [facility] [address] [facility] [address] [address], [place], [address], 01/16/2024 09:47:39 01/16/20 24 01/16/2024 CMP (FEMA LE) BUN/creatini ne ratio 20.29 ratio Not Available [facility] [address] [facility], [place], [address], 01/16/2024 09:47:39 01/16/20 24 01/16/2024 CMP (FEMA LE) eGFR calculated 89.9 Not Available [facility] [address] [facility] 1, [place], [address], 01/16/2024 09:47:39 01/16/20 24 01/16/2024 CMP (FEMA LE) total protein 7.5 g/dL 6.0-8. 5 Not Available [facility] [address] [facility] 1, [place], [address], 01/16/2024 09:47:39 01/16/20 24 01/16/2024 CMP (FEMA LE) total bilirubin 0.6 mg/dL 0.2-1. 3 Not Available [facility] [address] [facility] 1, [place], [address], 01/16/2024 09:47:39 01/16/20 24 01/16/2024 CMP (FEMA LE) albumin 4.3 g/dL 3.5-5. 5 Not Available [facility] [address] [facility] 1, [place], [address], 01/16/2024 09:47:39 01/16/20 24 01/16/2024 CMP (FEMA LE) globulin 3.2 calc Not Available [facility] [address] [facility] 1, [place], [address], 01/16/2024 09:47:39 01/16/20 24 01/16/2024 CMP (FEMA LE) AST (SGOT) 30.0 U/L 0.0-46 .0 Not Available [facility] [address] [facility], [place], [address], 01/16/2024 09:47:39 01/16/20 24 01/16/2024 CMP (FEMA LE) altv (SGPT) 26.0 U/L 13.0-6 9.0 normal Not Available [facility] [address] [facility] 1, [place], [address], 01/16/2024 09:47:39 01/16/20 24 01/16/2024 CMP (FEMA LE) A/G ratio 1.3 ratio Not Available [facility] [address] [facility] 1, [place], [address], 01/16/2024 09:47:39 01/16/20 24 01/16/2024 CMP (FEMA LE) ALP phos 81.0 U/L 30.0-1 40.0 normal Not Available [facility] [address] [facility] 1, [place], [address], 01/16/2024 09:47:39 01/16/20 24 01/16/2024 CMP (FEMA LE) calcium 9.5 mg/dL 8.4-10 .5 Not Available [facility] [address] [facility] 1, [place], [address], 01/16/2024 09:47:39 01/16/20 24 01/16/2024 CMP (FEMA LE) sodium 140.0 mmol/ L 136.0- 145.0 Not Available [facility] [address] [facility] 1, [place], [address], 01/16/2024 09:47:39 01/16/20 24 01/16/2024 CMP (FEMA LE) potassium 4.6 mmol/ L 3.5-5. 1 Not Available [facility] [address] [facility], [place], [address], 01/16/2024 09:47:39 01/16/2001/16/2024 CMP (FEMA LE) chloride 109.0 mmol/ L 98.0-1 10.0 normal Not Available [facility] [address] [facility] 1, [place], [address], 01/16/2024 09:47:39 01/16/20 24 01/16/2024 CMP (FEMA LE) C02 24.0 mmol/ L 22.0-3 1.0 Not Available [facility] [address] [facility] 1, [place], [address], 01/16/2024 09:47:39 01/16/20 24 01/16/2024 CMP (FEMA LE) anion gap 7.0 calc Not Available [facility] [address] [facility] 1, [place], [address], 01/16/2024 09:47:39 01/16/2001/16/2024 CMP (FEMA LE) osmolality 289.3 calc Not Available [facility] [address] [facility] 1, [place], [address], 01/16/2024 09:47:39 01/16/2001/19/2024 RHEUM ATOID FACTO R rheumatoid factor >650 IU/mL <14 high Verif ied by repea t bebe sis. Not Available [facility] [address] [place], [address], 01/19/2024 09:18:48 10/23/1910/22/2024 CBC WBC 4.9 x10 4.0-10 .5 Not Available [facility] [address] [facility] 1, [place], [address], 10/22/2024 11:39:38 10/23/19 25 10/22/2024 CBC RBC 4.55 x10 3.50-5 .50 Not Available [facility] [address] [facility] 1, [place], [address], 10/22/2024 11:39:38 10/23/19 25 10/22/2024 CBC HGB 13.5 g/dL 12.0-1 6.0 Not Available [facility] [address] [facility] 1, [place], [address], 10/22/2024 11:39:38 10/23/1910/22/2024 CBC HCT 41.4 % 37.0-4 7.0 Not Available [facility] [address] [facility] 1, [place], [address], 10/22/2024 11:39:38 10/23/1910/22/2024 CBC MCV 91.0 fL 80.0-9 9.9 Not Available [facility] [address] [facility] 1, [place], [address], 10/22/2024 11:39:38 10/23/19 25 10/22/2024 CBC MCH 29.7 pg 27.0-3 2.0 Not Available [facility] [address] [facility] 1, [place], [address], 10/22/2024 11:39:38 10/23/1910/22/2024 CBC MCHC 32.6 g/dL 32.0-3 6.0 Not Available [facility] [address] [facility] [address] [facility] 1, [place], [address], 10/22/2024 11:39:38 10/23/1910/22/2024 CBC RDW 14.5 % 11.5-1 4.5 Not Available [facility] [facility] 1, [place], [address], 10/22/2024 11:39:38 10/23/19 25 10/22/2024 CBC plt 321.9 x10 140.0- 451.0 Not Available [facility] [address] [address], [place], [address], 10/22/2024 11:39:38 10/23/19 25 10/22/2024 CBC lymphocytes % 52.7 % 20.0-5 0.0 high Not Available [facility] [address] [address], [place], [address], 10/22/2024 11:39:38 10/23/19 25 10/22/2024 CBC granulcytes % 37.5 % 30.0-7 0.0 Not Available [facility] [address] [address], [place], [address], 10/22/2024 11:39:38 10/23/19 25 10/22/2024 CBC monocytes % 8.1 % 2.0-16 .0 Not Available [facility] [address] [address], [place], [address], 10/22/2024 11:39:38 10/23/19 25 10/22/2024 CBC granulcytes# 1.8 x10 Not Naina ilable [facility] [address] [address], [place], [address], 10/22/2024 11:39:38 10/23/19 25 10/22/2024 CBC lymphocytes # 2.6 x10 Not Available [facility] [address], [address], 10/22/2024 11:39:38 10/23/19 25 10/22/2024 CBC monocytes # 0.4 x10 Not Avai [facility]able [facility] [address] [address], [place], [address], 10/22/2024 11:39:38 10/23/19 25 10/22/2024 CMP (FEMA LE) glucose 97.0 mg/dL 60.0-9 9.0 Not Available [facility] [address] [facility] 1, [place], [address], 10/22/2024 12:16:42 10/23/19 25 10/22/2024 CMP (FEMA LE) BUN (blood urea nitrogen) 14.0 mg/dL 10.0-2 6.0 Not Available [facility] [address] [address], [place], [address], 10/22/2024 12:16:42 10/23/19 25 10/22/2024 CMP (FEMA LE) creatinine (serum) 0.6 mg/dL 0.4-1. 5 Not Available [id number] [address], [place], [address], 10/22/2024 12:16:42 10/23/19 25 10/22/2024 CMP (FEMA LE) BUN/creatini ne ratio 23.33 ratio Not Available [address] [address], [place], [address], 10/22/2024 12:16:42 10/23/19 25 10/22/2024 CMP (FEMA LE) eGFR calculated 105.4 Not Available [facility] [address] [address], [place], [address], 10/22/2024 12:16:42 10/23/19 25 10/22/2024 CMP (FEMA LE) total protein 7.8 g/dL 6.0-8. 5 Not Available [id number] [address], [place], [address], 10/22/2024 12:16:42 10/23/19 25 10/22/2024 CMP (FEMA LE) total bilirubin 0.7 mg/dL 0.2-1. 3 Not Available [facility] [address] [facility] [address], [place], [address], 10/22/2024 12:16:42 10/23/19 25 10/22/2024 CMP (FEMA LE) albumin 4.4 g/dL 3.5-5. 5 Not Available [facility] [address] [facility] [address], [place], [address], 10/22/2024 12:16:42 10/23/1910/22/2024 CMP (FEMA LE) globulin 3.4 calc Not Available [facility] [address] [address], [place], [address], 10/22/2024 12:16:42 10/23/19 25 10/22/2024 CMP (FEMA LE) AST (SGOT) 27.0 U/L 0.0-46 .0 Not Available [facility] [address] [facility] [address], [place], [address], 10/22/2024 12:16:42 10/23/19 25 10/22/2024 CMP (FEMA LE) altv (SGPT) 21.0 U/L 13.0-6 9.0 normal Not Available [facility] [address] [facility] [address], [place], [address], 10/22/2024 12:16:42 10/23/19 25 10/22/2024 CMP (FEMA LE) A/G ratio 1.3 ratio Not Available [facility] [address] [facility] [address], [place], [address], 10/22/2024 12:16:42 10/23/19 25 10/22/2024 CMP (FEMA LE) ALP phos 84.0 U/L 30.0-1 40.0 normal Not Available [facility] [address] [facility] [address], [place], [address], 10/22/2024 12:16:42 10/23/1910/22/2024 CMP (FEMA LE) calcium 9.7 mg/dL 8.4-10 .5 Not Available [facility] [address] [facility] [address], [place], [address], 10/22/2024 12:16:42 10/23/1910/22/2024 CMP (FEMA LE) sodium 141.0 mmol/ L 136.0- 145.0 Not Available [facility] [address] [facility] [address], [place], [address], 10/22/2024 12:16:42 10/23/1910/22/2024 CMP (FEMA LE) potassium 4.4 mmol/ L 3.5-5. 1 Not Available [facility] [address] [facility] [address], [place], [address], 10/22/2024 12:16:42 10/23/1910/22/2024 CMP (FEMA LE) chloride 106.0 mmol/ L 98.0-1 10.0 normal Not Available [facility] [address] [facility] [address], [place], [address], 10/22/2024 12:16:42 10/23/1910/22/2024 CMP (FEMA LE) C02 28.0 mmol/ L 22.0-3 1.0 Not Available [facility] [address] [facility] [address], [place], [address], 10/22/2024 12:16:42 10/23/1910/22/2024 CMP (FEMA LE) anion gap 7.0 calc Not Available [facility] [address] [facility] [address], [place], [address], 10/22/2024 12:16:42 10/23/19 25 10/22/2024 CMP (FEMA LE) osmolality 291.5 calc Not Available [facility] [address] [facility] [address], [place], [address], 10/22/2024 12:16:42 10/23/19 25 10/22/2024 LIPID PROFI LE (FEMA LE) cholesterol 150.0 mg/dL 0.0-20 0.0 Not Available [facility] [address] [facility] [address], [place], [address], 10/22/2024 12:16:44 10/23/19 25 10/22/2024 LIPID PROFI LE (FEMA LE) trig 77.0 mg/dL 0.0-15 0.0 Not Available [facility] [address] [facility] [address], [place], [address], 10/22/2024 12:16:44 10/23/19 25 10/22/2024 LIPID PROFI LE (FEMA LE) HDL - direct 48.0 mg/dL >40.0 Not Available [facility] [address] [facility] [address], [place], [address], 10/22/2024 12:16:44 10/23/1910/22/2024 LIPID PROFI LE (FEMA LE) VLDL - direct 15.4 mg/dL Not Available [facility] [address] [facility] [address], [place], [address], 10/22/2024 12:16:44 10/23/1910/22/2024 LIPID PROFI LE (FEMA LE) LDL - direct 86.6 mg/dL 0.0-13 0.0 Not Available [facility] [address] [address], [place], [address], 10/22/2024 12:16:44 03/02/2003/02/2025 URINA LYSIS WITH MICRO color YELLOW Not Available [facility] [address], [place], [address], 03/02/2025 15:32:16 03/02/2003/02/2025 URINA LYSIS WITH MICRO clarity CLEAR Not Available [facility] [address], [place], [address], 03/02/2025 15:32:16 03/02/2003/02/2025 URINA LYSIS WITH MICRO glu NEGATI VE Not Available [facility] [address], [place], [address], 03/02/2025 15:32:16 03/02/2003/02/2025 URINA LYSIS WITH MICRO bili NEGATI VE Not Available [facility] [address], [place], [address], 03/02/2025 15:32:16 03/02/2003/02/2025 URINA LYSIS WITH MICRO ket NEGATI VE Not Available [facility] [address], [place], [address], 03/02/2025 15:32:16 03/02/2003/02/2025 URINA LYSIS WITH MICRO S.g 1.010 1.005- 1.025 Not Available [facility] [address], [place], [address], 03/02/2025 15:32:16 03/02/2003/02/2025 URINA LYSIS WITH MICRO pH 6.5 5.0-7. 0 Not Available [facility] [address], [place], [address], 03/02/2025 15:32:16 03/02/20 25 03/02/2025 URINA LYSIS WITH MICRO pro NEGATI VE Not Available [facility] [address] [facility] [address], [place], [address], 03/02/2025 15:32:16 03/02/20 25 03/02/2025 URINA LYSIS WITH MICRO uro 0.2 E.U./D L Not Available [facility] [address] [facility] [address], [place], [address], 03/02/2025 15:32:16 03/02/20 25 03/02/2025 URINA LYSIS WITH MICRO nit NEGATI VE Not Available [facility] [address] [facility] [address], [place], [address], 03/02/2025 15:32:16 03/02/2003/02/2025 URINA LYSIS WITH MICRO blo 2+ high Not Available [facility] [address] [facility] [address], [place], [address], 03/02/2025 15:32:16 03/02/20 25 03/02/2025 URINA LYSIS WITH MICRO tracey 2+ high Not Available [facility] [address] [facility] [address], [place], [address], 03/02/2025 15:32:16 03/02/20 25 03/02/2025 URINA LYSIS WITH MICRO WBC 40-45 abnormal Not Available [facility] [address] [facility] [address], [place], [address], 03/02/2025 15:32:16 03/02/2003/02/2025 URINA LYSIS WITH MICRO RBC 1-2 Not Available [facility] [address] [facility] [address], [place], [address], 03/02/2025 15:32:16 03/02/20 25 03/02/2025 URINA LYSIS WITH MICRO epi cells NEGATI VE Not Available [facility] [address], [place], [address], 03/02/2025 15:32:16 03/02/20 25 03/02/2025 URINA LYSIS WITH MICRO bacteria NEGATI VE Not Available [facility] [address] [facility] [address], [place], [address], 03/02/2025 15:32:16 03/02/20 25 03/02/2025 URINA LYSIS WITH MICRO other NG Not Available [facility] [address] [facility] [address], [place], [address], 03/02/2025 15:32:16 03/02/20 25 03/04/2025 CULTU RE, URINE , ROUTI NE culture, urine, routine SEE NOTE CULTU RE, URINE , ROUTI NE Micro Numbe r: [id number] Test Statu s: Final Speci men Sourc e: Urine , clean catch Speci men Quali ty: Adequ ate Resul t: Mixed genit al conrado isola jaciel. These super ficia l bacte nancy are not indic ative of a urina ry tract infec tion. No furth er organ ism ident ifica tion is warra nted on this speci men. If clini thony indic ated, recol lect clean -catc h, mid-s tream urine and trans delonte immed iatel y to Urine Cultu re Trans port Tube. Not Available [facility] [id number], [place], [address], 03/04/2025 02:58:21 10/18/19 24 10/18/2023 MAMMO , scree angelica, digit al, bilat eral No observ ation record ed. [email or web address] [facility] [address] [facility], [place], [address], 10/23/2023 15:01:17 10/23/19 24 10/03/2023 CPAP compl iance * No observ ation record ed. [email or web address] Not Available 09/26 20:35:45 10/28/19 25 10/27/2024 MAMMO , scree angelica, digit al, bilat eral No observ ation record ed. [email or web address] [facility] [address] [place], [address], 10/29/2024 14:05:36 Result Notes None recorded. Problems Name Problem SNOMED Code Status Onset Date Resolution Date Notes Provider Name and Address Organization Details Recorded Time Gastroesoph ageal reflux disease 198163122 Active 2022 Dante Jose [address], [address], [facility] 3 09:01:48 Urinary incontinenc e 438559780 Active 2022 Dante Jose [address], [address], [facility] 3 09:01:49 Rheumatoid arthritis 07860435 Active 2022 Dante Jose [address], [address], [facility] 3 09:01:53 Increased frequency of urination 199939140 Active 2022 Dante Jose [address], [address], [facility] 3 09:01:55 Essential hypertensio n 31992076 Active 2022 Dante Jose [address], [address], [facility] 3 09:01:57 Mixed hyperlipide rudi 905564496 Active 2022 Dante Jose [address], [address], [facility] 3 09:01:58 Morbid obesity 440998176 Active 2022 Dante Jose DO [address] [place], [address], [facility] 3 09:02:25 Obstructive sleep apnea syndrome 19683537 Active 2023 Jg Hamiltonsanjiv shady, [facility] 4 11:47:45 Spasm of muscle of lower back 1719446861225 9105 Active 2024 Dante Jose, [address] [place], [address], [facility] 5 15:34:25 Problem Notes None recorded. Procedures Surgical History Date Name Laterality Status Provider Name and Address Organization Details Recorded Time 3 Cataract Surgery completed ANNMARIE BRADFORD [facility] 10/11/2022 09:24:08 Imaging Results None recorded. Procedure Notes None recorded. Medical Equipment None Reported. Allergies No known drug allergies Medications Name Sig Start Date Stop Date Status Note LastModified by Organization Details LastModified Time losartan 50 mg tablet Take 1 tablet every day by oral route in the evening for 90 days. 10/22 completed Not Available Not Available Not Available cyclobenz aprine 10 mg tablet Take 1 tablet 3 times a day by oral route as needed, for pain or spasm. 2024 active Not Available Not Available Not Avai lable amoxicill in 500 mg capsule TAKE ONE CAPSULE BY MOUTH THREE TIMES DAILY TIL GONE 04/22 completed Not Available Not Available Not Available atorvasta tin 20 mg tablet TAKE 1 TABLET BY MOUTH DAILY IN THE EVENING 2024 active Not Available Not Available Not Avai lable tizanidin e 4 mg tablet TAKE 1 TABLET BY MOUTH EVERY 8 HOURS NEEDED 04/12 completed Not Available Not Available Not Available phenazopy ridine 200 mg tablet 10/22 completed Not Available Not Available Not Available prednison e 20 mg tablet TAKE 1 TABLET BY MOUTH THREE TIMES DAILY 10/11 completed Not Available Not Available Not Available valsartan 80 mg tablet TAKE 1/2 TABLET BY MOUTH EVERY DAY IN THE EVENING 08/14 completed Not Available Not Available Not Available penicilli n V potassium 500 mg tablet Take 1 tablet twice a day by oral route for 7 days. 01/15 completed Not Available Not Available Not Available Zyrtec 10 mg tablet 1 mg every day by oral route. 01/26 completed Not Available Not Available Not Available ciproflox acin 500 mg tablet TAKE 1 TABLET BY MOUTH TWICE DAILY FOR 7 DAYS active Not Available Not Available No t Available omeprazol e 40 mg capsule,d elayed release TAKE 1 CAPSULE BY MOUTH IN THE MORNING 2024 active Not Available Not Available Not Avai lable triamcino lone acetonide 0.1 % topical cream active Not Available Not Available Not Available amoxicill in 500 mg tablet TAKE 1 TABLET BY MOUTH THREE TIMES DAILY UNTIL GONE 04/22 completed Not Available Not Available Not Available biotin 10,000 mcg capsule 1 capsule every day by oral route. active Not Available Not Available No t Available triamcino lone acetonide 0.1 % topical ointment APPLY TOPICALL Y TO THE AFFECTED AREA TWICE DAILY NEEDED active Not Available Not Available No t Available lisinopri l 10 mg tablet TAKE 1 TABLET BY MOUTH EVERY DAY IN THE MORNING 05/10 completed Not Available Not Available Not Available magnesium 100 mg tablet Take 1 tablet every day by oral route. 04/12 completed Not Available Not Available Not Available omeprazol e 20 mg capsule,d elayed release Take 1 capsule every day by oral route in the morning for 90 days. 2024 active Not Available Not Available Not Avai lable diclofena c sodium 75 mg tablet,de layed release TAKE 1 TABLET BY MOUTH EVERY 12 HOURS NEEDED 04/12 completed Not Available Not Available Not Available cefuroxim e axetil 500 mg tablet TAKE 1 TABLET BY MOUTH TWICE DAILY 04/12 completed Not Available Not Available Not Available scopolami ne 1 mg over 3 days transderm al patch as directed 10/11 completed Not Available Not Available Not Available fluticaso ne propionat e 50 mcg/actua tion nasal spray,elijah pension one spray in each nostril daily 2024 active Not Available Not Available Not Avai lable neomycin 3.5 mg/g-poly myxin B 10,000 unit/g-de xameth 0.1 % eye oint APPLY 1/4 RIBBON 3 TIMES A DAY START DAY OF PROCEEDU RE ON AFFECTED EYE FOR 7 TO 10 DAYS active Not Available Not Available No t Available Vitamin D3 25 mcg (1,000 unit) capsule 1 microgra m every day by oral route. active Not Available Not Available No t Available nitrofura ntoin monohydra te/macroc rystals 100 mg capsule Take 1 capsule every 12 hours by oral route for 7 days. 04/12 completed Not Available Not Available Not Available metronida zole 1 % topical gel APPLY THIN LAYER TOPICALL Y TO ENTIRE FACE DAILY active Not Available Not Available No t Available magnesium daily 04/12 completed 0; Recorded 05/10/20 22 9:05AM by Annmarie Bradford, Office Visit; Not Available Not Available Not Available atorvasta tin daily 04/12 completed [address]; Recorded 04/05/20 22 8:21AM by Jg Dominguez (i geovanni through Dante Jose DO), Office Visit; Mail Order Quantity : 100 Tablet; Refill Quantity : 0; Not Available Not Available Not Available garlic take two tablets daily active 2000 IU Not Available Not Available No t Available zinc daily 04/12 completed 0; Recorded 05/10/20 22 9:05AM by Annmarie Bradford, Office Visit; Not Available Not Available Not Available omeprazol e daily 04/12 completed Recorded 04/05/20 22 8:26AM by Jg Dominguez, Office Visit; Mail Order Quantity : 90 Tablet; Mail Order Days: 90 Days; Refill Quantity : 0; Not Available Not Available Not Available Fluticaso ne Propionat e (Nasal) 10/11 completed Not Available Not Available Not Available Acidophil us active Not Available Not Available Not Available Vitamin D3 active Not Available Not Available Not Available Acidophil us Probiotic 100 million cell-10 mg capsule 1 capsule every day by oral route. active Not Available Not Available No t Available Dang-D daily 04/12 completed 0; Recorded 05/10/20 22 9:05AM by Annmarie Bradford, Office Visit; Not Available Not Available Not Available omeprazol e 20 mg delayed release,d isintegra ting tablet Take 1 mg every day by oral route. 10/12 completed Not Available Not Available Not Available Vitals Date Recorded Body height Body mass index (BMI) Body weight Oxygen saturation Oxygen saturation in Arterial blood by Pulse oximetry Heart rate Respiratory rate Systolic And Diastolic Provider Name and Address Organization Details Last Updated DateTime 4 167.64 cm 37.6 kg/m2 783622. 02 g 98 % 98 % 105 /min 20 /min 130/90 mm[Hg] Irma [facility] 4 09:24:01 Date Recorded Body height Body mass index (BMI) Body weight Oxygen saturation Oxygen saturation in Arterial blood by Pulse oximetry Heart rate Respiratory rate Systolic And Diastolic Provider Name and Address Organization Details Last Updated DateTime 5 167.64 cm 32.2 kg/m2 27163.2 8 g 97 % 97 % 92 /min 18 /min 118/80 mm[Hg] Irma [facility] 5 10:06:24 Date Recorded Body height Body mass index (BMI) Body weight Oxygen saturation Oxygen saturation in Arterial blood by Pulse oximetry Heart rate Respiratory rate Systolic And Diastolic Provider Name and Address Organization Details Last Updated DateTime 4 167.64 cm 36.5 kg/m2 295197. 28 g 99 % 99 % 73 /min 20 /min 128/82 mm[Hg] [facility] 08:16:28 Date Recorded Body height Body mass index (BMI) Body weight Oxygen saturation Oxygen saturation in Arterial blood by Pulse oximetry Heart rate Respiratory rate Body temperature Systolic And Diastolic Provider Name and Address Organization Details Last Updated DateTime 5 167.64 cm 29.1 kg/m2 88256.7 3 g 98 % 98 % 114 /min 18 /min 98.3 [degF] 130/80 mm[Hg] Irma Booe [facility] 5 15:00:19 Date Recorded Body height Body mass index (BMI) Body weight Oxygen saturation Oxygen saturation in Arterial blood by Pulse oximetry Heart rate Respiratory rate Systolic And Diastolic Provider Name and Address Organization Details Last Updated DateTime 4 167.64 cm 34.1 kg/m2 42208.6 9 g 99 % 99 % 72 /min 18 /min 120/82 mm[Hg] [facility] 09:20:05 Social History None recorded. Functional Status Question Answer Note LastModified by Organizat ion Details LastModified Time Do you use any illicit or recreational drugs? No [email or web address] Information not available 10/11/2022 Do you or have you ever used any other forms of tobacco or nicotine? No [email or web address] Information not available 10/11/2022 What is your level of alcohol consumption? None [email or web address] Information not available 10/11/2022 Mental Status None recorded. Family History Nothing Reported. Medical History No medical history recorded. Gynecological HistoryNo gynecological history recorded. Obstetrics History GPAL:G 0 P 0 0 0 0 Immunizations Vaccine Type Date Status Note Provider Nam e and Address Organization Details Recorded Time Influenza, split virus, quadrivalent, preservative 2 completed Irma Leija [facility] 10/09/2023 09:15:50 COVID-19, mRNA, LNP-S, PF, 30 mcg/0.3 mL dose 1 completed Irma Leija [facility] 10/09/2023 09:15:50 COVID-19, mRNA, LNP-S, PF, 30 mcg/0.3 mL dose 1 completed Irma Leija [facility] 10/09/2023 09:15:50 Influenza, split virus, quadrivalent, PF 3 completed [facility] 11:46:59 Past Encounters Encounter ID Performer Location Encounter Start Date Encounter Closed Date Diagnosis/Indication Diagnosis SNOMED-CT Code Diagnosis ICD10 Code Diagnosis IMO Codes Diagnosis Note [id number] Dante Jose DO [facility]) [address] [place] [address] 10/11/2022 08:53:00 10/11/2022 13:03:21 Essential hypertension 71598555 I10 higher today. pt to monitor closely at home for 2 wks with phone f/u. no changes in meds. Hypercholesterolemia 136 73584 E78.00 Stable. Will repeat labs. Continue Atorvastat in. Counseled on diet and exericse. Mixed hyperlipidemia 267 924510 E78.2 Stable. Will repeat labs. Continue Atorvastat in. Counseled on diet and exericse. Increased frequency of urination 693195529 R35.0 UA today. counseled Rheumatoid arthritis 698 37879 M06.9 arthralgia s well controlled without rheum meds. will get labs today Urinary incontinence 165 240318 R32 I counseled the patient on diagnosis, treatment options, medication s, and expectatio ns. All questions were addresssed . They were instructed to call the office or come in for Follow Up with any questions, concerns, or worsening problems. mild symptoms. handout given and discussed on pelvic floor exercises. Gastroesop hageal reflux disease 468331067 K21.9 increase omeprazole . counseled on diet. Morbid obesity 873933802 E66.01 I counseled pt on obesity. We discussed risks and ways to loose weight. Pt will work on diet, exercise. [id number] NAVI HERNANDEZ [facility] ([facility]) [address] [place] [address] 01/01/2023 14:58:49 01/09/2023 16:54:56 Dysuria 22063893 R30.0 Acute cystitis 91521496 N30.00 [id number] Dante Jose DO [facility] ([facility]) [address] [place] [address] 04/12/2023 08:56:44 04/12/2023 12:36:42 Essential hypertension 44977999 I10 High here again today. Counseled patient. She will monitor daily for 2 weeks at home. Consider antihypert ensive medication . Active or passive immunization 290430760 Z23 I counsled pt on vaccinatio ns. pt given fluvax today as above per pt request. Rheumatoid arthritis 698 37931 M06.9 arthralgia s well controlled without rheum meds. will get labs today Mixed hyperlipidemia 267 407502 E78.2 Stable. Will repeat labs. Continue Atorvastat in. Counseled on diet and exercise. Morbid obesity 834964091 E66.01 I counseled pt on obesity. We discussed risks and ways to loose weight. Pt will work on diet, exercise.S he is starting the Golo diet. Counseled on low-carb diet. Urinary incontinence 165 707536 R32 Symptoms continue to progress despite doing pelvic floor exercises and adjusting fluid intake. We will send to urology.. [id number] Dante Jose DO [facility] ([facility]) [address] [place] [address] 05/10/2023 09:36:20 05/10/2023 17:16:32 Essential hypertension 96630228 I10 High here again today. Counseled patient. She will monitor daily for 2 weeks at home. Consider antihypert ensive medication . [id number] Dante Jose DO [facility] ([facility]) [address] [place] [address] 06/25/2023 14:51:57 06/25/2023 17:10:44 Essential hypertension 84551781 I10 much improved, but some headache and brain fog with the valsartan. Stop valsartan start losartan 25 mg. Will give 50 mg tabs and cut in half. Can double if needed. Counseled. Gastroesop hageal reflux disease 168962628 K21.9 increase omeprazole . counseled on diet. Mixed hyperlipidemia 267 996090 E78.2 Stable. Will repeat labs next appt. Continue Atorvastat in. Counseled on diet and exercise. Morbid obesity 659449447 E66.01 I counseled pt on obesity. We discussed risks and ways to loose weight. Pt will work on diet, exercise.S he has been on Golo diet. Counseled on low-carb diet. Rheumatoid arthritis 698 98181 M06.9 arthralgia s well controlled without rheum meds. will get labs today Excessive daytime sleepiness - normal night sleep 980826028 G47.19 Patient has multiple signs and symptoms of sleep apnea as well as refractory hypertensi on. Will get home sleep study. Counseled on possible diagnosis, sleep hygiene, weight loss. [id number] Dante Jose DO [facility] ([facility]) [address] [place] [phone] 08/15/2023 10:42:52 08/15/2023 13:10:32 Obstructive sleep apnea syndrome 06014412 G47.33 08/15/23- Reviewed and discussed sleep study results, showing severe ALIVIA. We discussed diagnosis and treatment options of obstructiv e sleep apnea in detail. Will order CPAP 6-14cm and supplies to [facility]. F/u with me in 6 weeks after she starts using it, with chip.Couns eled patient on sleep hygiene, weight loss. Essential hypertension 96396161 I10 stable, continue Losartan 50mg daily, will send to her mail pharmacy today. [id number] Dante Jose DO [facility] ([facility]) [address] [place] [address] 10/09/2023 09:04:30 10/09/2023 10:14:57 Essential hypertension 46486213 I10 10/09/23- continue Losartan 50mg, taking 1/2 tab daily, continue monitoring BP regularly, expect improvemen t after dental procedure recovery and improved sleep with CPAP. Obstructiv e sleep apnea syndrome 15661480 G47.33 10/09/23- tolerating CPAP well, feeling better with it, wearing nightly. Rheumatoid arthritis 698 88596 M06.9 arthralgia s well controlled without rheum meds. will get labs today [id number] Dante Jose DO [facility] ([facility]) [address] [place] [address] 01/16/2024 08:01:31 01/17/2024 11:10:47 Essential hypertension 76104705 I10 01/16/24- Reviewed BP log, stable, continue current tx, 1/2 tab Losartan daily.10/08- continue Losartan 50mg, taking 1/2 tab daily, continue monitoring BP regularly, expect improvemen t after dental procedure recovery and improved sleep with CPAP. Obstructiv e sleep apnea syndrome 80878847 G47.33 01/16/24- tolerating CPAP with new mask, feeling better, wearing nightly. [facility] so it isn't waking her up multiple times through the night.10/08- tolerating CPAP well, feeling better with it, wearing nightly. Rheumatoid arthritis 698 57389 M06.9 arthralgia s well controlled without rheum meds. will get labs today Morbid obesity 123089345 E66.01 01/16/24- using GOLO, losing weight, feeling better, counseled continue working on diet, exercise. [id number] Dante Jose DO [facility]) [address] [place] [address] 04/22/2024 09:03:51 04/22/2024 15:46:27 Essential hypertension 17213053 I10 04/22/24: weaning off losartan due to lower bps with weight loss. counseled- Reviewed BP log, stable, continue current tx, 1/2 tab Losartan daily.10/08- continue Losartan 50mg, taking 1/2 tab daily, continue monitoring BP regularly, expect improvemen t after dental procedure recovery and improved sleep with CPAP. Obstructiv e sleep apnea syndrome [id number] G47.33 04/22/24: pressures are getting too high, probably due to weight loss and exercise. will decrease auto settings from 6-14 down to 6-12 cmH20. .Pt is michael parikh [facility] due to issues with service and billing.- tolerating CPAP with new mask, feeling better, wearing nightly. Advised see [facility] for adjustment of pressure setting so it isn't waking her up multiple times through the night.10/08- tolerating CPAP well, feeling better with it, wearing nightly. Rheumatoid arthritis [id number] M06.9 arthralgia s well controlled without rheum meds. will get labs next appt Morbid obesity [id number] E66.01 01/16/24- using GOLO, losing weight, feeling better, counseled continue working on diet, exercise. [id number] Dante Jose DO [facility] ([facility]) [address] [place] [address] 10/22/2024 09:06:34 10/22/2024 12:01:11 Gastroesophageal reflux disease [id number] K21.9 increase omeprazole . counseled on diet. Mixed hyperlipidemia [id number] E78.2 Stable. Will repeat labs next appt. Continue Atorvastat in. Counseled on diet and exercise. Obstructiv e sleep apnea syndrome [id number] G47.33 : Pt is compliant with CPAP, wearing more than 6hrs/night and missing less than 1 night/90da ys. I counseled on ALIVIA, CPAPs, and sleep hygeine.: pressures are getting too high, probably due to weight loss and exercise. will decrease auto settings from 6-14 down to 6-12 cmH20. .Pt is michael parikh [facility] due to issues with service and billing.- tolerating CPAP with new mask, feeling better, wearing nightly. [facility] pressure setting so it isn't waking her up multiple times through the night.10/08- tolerating CPAP well, feeling better with it, wearing nightly. Rheumatoid arthritis [phone] [id number] M06.9 arthralgia s well controlled without rheum meds. will get labs today. Essential hypertension [id number] I10 10/22/24: stable. remain off losartan. monitor bp closely as you conitnue to loose weight.: weaning off losartan due to lower bps with weight loss. counseled- Reviewed BP log, stable, continue current tx, 1/2 tab Losartan daily.10/08- continue Losartan 50mg, taking 1/2 tab daily, continue monitoring BP regularly, expect improvemen t after dental procedure recovery and improved sleep with CPAP. Spasm of m uscle of lower back [id number] M62.830 [id number] rest, naids, muscle relaxers prn, Morbid obesity [id number] E66.01 10/22/24: no longer on golo diet. I counseled pt on obesity. We discussed risks and ways to loose weight. Pt will work on diet, exercise.- using GOLO, losing weight, feeling better, counseled continue working on diet, exercise. [id number] Dante Jose DO [facility] ([facility]) [address] [place] [address] 03/02/2025 14:31:26 03/04/2025 12:20:55 Dysuria [id number] R30.0 67586 UA + for infection, counseled will tx acute UTI, Cipro BID for 7 days. Health Concerns Section Related Observation LastModified by Organization Detai ls LastModified Time None Recorded Concern Status LastModified by Organization Details LastModified Time None Recorded Advance Directives Directive None Recorded Payers Insurance Date Sequence Insurance Name Policy Number Policy Ladd Covered Member ID Ladd Member ID Guarantor Name 03/09/2025 1 [facility] (MEDICARE REPLACEMENT/A DVANTAGE - PPO) [id number] Celina Domingo [id number] Celina Domingo Notes Date Note Type Note Provider Name and Address Organization Details Recorded Time 10/09/2023 text/html Hypertension IM/FMReported by PatientHPIFor severity, patient reportsstage 2 (>140/>90 mmhg)but reportsmoderate. For quality, patient reportshere for check-up. For associated symptoms, patient reportsno shortness of breath,no fatigue,no palpitations,no decline in exercise capacity,exertional dyspnea,no snoring,no sleep apnea,no muscle weakness,no numbness,no tingling,no tachycardia,no excessive sweating,no thinning skin,no flank pain,no headaches,no loss of vision, andno chest pain.ROS as noted in the HPI 6mth f/u HTN, RA, obesity. She is taking 1/2 tab of her Losartan, if she takes a whole tab it makes her feel foggy, off balance.BP ranging from 108/70 to 153/96. She has had a lot of dental pain the past month, has been to Dentist, root canal performed twice. Using CPAP, tolerating well, sleeping much better, feels much better. Using at least 4 hours per night, every night. Service is through [facility]. She feels like her RA is well controlled. Minimal pain and stiffness in the mornings. Has seen Urology in [place]. No longer getting up at night to void since starting her CPAP. Dante Jose DO [address] [place], [address], [facility] 10/11/2023 14:00:01 01/16/2024 text/html Hypertension IM/FMReported by PatientHPIFor severity, patient reportsstage 2 (>140/>90 mmhg)but reportsmoderate. For quality, patient reportshere for check-up. For associated symptoms, patient reportsno shortness of breath,no fatigue,no palpitations,no decline in exercise capacity,exertional dyspnea,no snoring,no sleep apnea,no muscle weakness,no numbness,no tingling,no tachycardia,no excessive sweating,no thinning skin,no flank pain,no headaches,no loss of vision, andno chest pain.ROS as noted in the HPI Pt presents for recheck of chronic illness, 3 months, HTN, RA, ALIVIA. She is still taking 1/2 tab of her Losartan, if she takes a whole tab it makes her feel foggy, off balance.BP ranging from 101/76 to 139/92. She states she is feeling better since losing wt, currently taking OTC GOLO twice daily.She has lost 13lbs since 12/27/23, feels good about this. She has been to dentist and has had all dental work done. Using CPAP, tolerating well, sleeping much better, feels much better. Using all night, every night. Service is through [facility]. She reports she has found a mask that is comfortable and can be tolerated, she does wake up 2-3 times per night with it when it starts blowing a lot of air, is able to go back to sleep afterward. She feels like her RA is well controlled. Minimal pain and stiffness in the mornings. No longer seeing Urology in [place]. No longer getting up at night to void since starting her CPAP. Dante JoseDO [address] [place], [address], [facility] 02/15/2024 10:23:02 04/22/2024 text/html Hypertension IM/FMReported by PatientHPIFor severity, patient reportsstage 2 (>140/>90 mmhg)but reportsmoderate. For quality, patient reportshere for check-up. For associated symptoms, patient reportsno shortness of breath,no fatigue,no palpitations,no decline in exercise capacity,exertional dyspnea,no snoring,no sleep apnea,no muscle weakness,no numbness,no tingling,no tachycardia,no excessive sweating,no thinning skin,no flank pain,no headaches,no loss of vision, andno chest pain.ROS as noted in the HPI Pt presents for recheck of chronic illness, 3 months, HTN, RA, ALIVIA. She is still taking 1/2 tab of her Losartan every other day , if she takes a whole tab it makes her feel foggy, off balance. She stopped the med for approximately 2 weeks because her bp got too low and then restarted it at half tab qodBP ranging from 100/72 to 140/74. She states she is feeling better since losing wt, currently taking OTC GOLO twice daily.She has lost 29 lbs since 11/26/23, feels good about this. She continues to try to lose wt with diet. She has been to dentist and has had all dental work done. She has to wait until May to get her bridge done.Pt reports not doing well with CPAP lately. had dental work on left uppers 3 times lately and the strap is cuasing pain. Also, she reports the pressure gets too high and she has been taking the mask off around 3 am or before most night. Using CPAP, tolerating well, sleeping much better, feels much better. Using all night, every night. Service is through [facility]. She reports she has found a mask that is comfortable and can be tolerated, she does wake up 2-3 times per night with it when it starts blowing a lot of air, is able to go back to sleep afterward. She is having some difficulty with her mask d/t her dental pain She feels like her RA is well controlled. Minimal pain and stiffness in the mornings. No longer seeing Urology in [place]. No longer getting up at night to void since starting her CPAP. She has seen derm approximately a month ago and had some spots removed and she is waiting on appt to go back Dante Jose, DO [address] [place] [address], [phone], [facility] 05/22/2024 20:36:07 10/22/2024 text/html ROS as noted in the HPI Pt presents for recheck RA, HTN, HLD, ALIVIA She admits that she stopped losartan months ago and has been keeping daily log of bpher readings are running from 94/69 and 142/95 since July. The highest reading she had was when she had dental workShe is requesting something different than losartan if she needs a bp med She is wanting to discuss any other options than the masks she has tried for sleep apnea. She is having problems d/t it is causing rosacea breakouts and sinus problemsShe is only able to wear the cpap until 3 or 4 am then she has to take it off She c/o back pain daily located right upper back and if takes aleve then that pain resolves and has pain to lower right side around kidney. She also reports having spasms to lower back and she has to use ice pack and lay down. When this occurs her pain is 6/10Pt concerned about sleep apnea mask. Alternative options including inspire, surgery, and weight loss discussed. Pt stated weight loss goal 165lbs. Pt also c/o lower back pain - options including muscle relaxers and massage discussed as pain is muscular in nature. Dante Jose DO [address] [place] [address], [phone], [facility] 10/28/2024 16:44:47 03/02/2025 text/html ROS as noted in the HPI Pt presents for urinary sx She started having sx on Sunday last week ( 3 days ago).She c/o urinary urgency, bladder pain/pressure. Denies any hematuria.She started with fever and chills today She did have leftover Amoxicillin at home, started it and took the last tablet today. She would like med sent to [facility] today UA with +blood, + leuks. She is losing weight, intentionally, working hard at it, she is 180lbs today, has a goal to be 165lbs by the end of Mar. Dante Jose DO [address] [place] [address], [phone], [facility], [place] 03/04/2025 09:36:04 OBGyn Episode No OBEpisode recorded.
--- OUTSIDE RECORDS SUMMARY | 2025-03-10 08:13 | XMS_ITS | Clinical Summary ---
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
--- OUTSIDE RECORDS SUMMARY | 2025-03-10 08:13 | XMS_ITS | Encounter Summary ---
Author Organization [facility] [facility] Address 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
--- OUTSIDE RECORDS SUMMARY | 2025-03-10 08:13 | XMS_ITS | Encounter Summary ---
Author Organization [facility] Address 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 [place], [place] [address] Admit Date: 02/14/2008 CELINA PRO Sex: F Admit Prov: BONY CHAMBERS Date: 1955 Primary Care Prov: KIZZY CRAWFORD CMRN: [id number] Room: [facility] SSN: [id number] IMAGING SERVICES Ordering Prov: N/A Interpretation EXAM: [...] CREATININE POC 0.7 0.6 - 1.3 mg/dL [facility] GFR, >60 >=60 mL/min/1.7 sq meter [facility] GFR >60 >=60 mL/min/1.7 sq meter [facility] Capillary blood specimen (specimen) 02/14/2008 7:18 AM CDT 02/14/2008 7:18 AM CDT us Bony Chambers MD POINT OF CARE TESTING Edited INTERFACE SYSTEM Refer to clinic/hospital department [facility] CLIA# [id number] [address] [place] [address] documented in this encounter Visit Diagnoses Diagnosis Other symptoms referable to hand joint documented in this encounter Care Teams Cancer Registrar Relationship Specialty Start Date End Date James Velazquez DO PCP - General 08/26/20 documented as of this encounter
--- OUTSIDE RECORDS SUMMARY | 2025-03-10 08:13 | XMS_ITS | Clinical Summary ---
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 Gender Identity Not on file Sexual Orientation Not on file Last Filed Vital Signs Vital Sign Reading Time Taken Comments Blood Pressure 118/78 04/11/2012 5:22 PM SENIOR USER EXPERIENCE ARCHITECT Pulse 87 04/11/2012 5:22 PM SENIOR USER EXPERIENCE ARCHITECT Temperature 37.1 C (98.8 F) 04/11/2012 3:22 PM SENIOR USER EXPERIENCE ARCHITECT Respiratory Rate 16 04/11/2012 5:22 PM SENIOR USER EXPERIENCE ARCHITECT Oxygen Saturation 100% 04/11/2012 5:22 PM SENIOR USER EXPERIENCE ARCHITECT Inhaled Oxygen Concentration - - Weight 86.2 kg (190 lb) 04/11/2012 3:22 PM SENIOR USER EXPERIENCE ARCHITECT Height 167.6 cm (5' 6 ) 04/11/2012 3:22 PM SENIOR USER EXPERIENCE ARCHITECT Body Mass Index 30.67 04/11/2012 3:22 PM SENIOR USER EXPERIENCE ARCHITECT Plan of Treatment Health Maintenance Due Date [...] Most Recently Relevant to Health Maintenance Insurance [place] [id number] Care Teams Sports Writer Relationship Specialty Start Date End Date James Velazquez DO PCP - General 08/26/20
--- OUTSIDE RECORDS SUMMARY | 2025-03-10 08:13 | XMS_ITS | Encounter Summary ---
Author Organization [facility] Address [address] [place] [address] Care Team Providers Care Medical Billing Representative Name Role Phone James Velazquez Primary Care Provider [phone] Reason for Referral * Radiology Services (Routine) - Closed Specialty Diagnoses / Procedures Referred By Contac t Referred To Contact Diagnoses Encounter for screening mammogram for malignant neoplasm of breast Procedures MAMMO SCREEN BILAT W OR WO CAD Self Referral ProviderJohn MD Referral ID Status Reason Start Date Expiration Date Visits Re quested Visits Authorized [id number] Closed 08/24/2020 09/24/2021 1 1 Encounter Details Date Type Department Care Team (Late st Contact Info) Description 08/24/2020 Ancillary Orders [facility] Centralized Scheduling [address] [place] [address] Self Referral ProviderJohn MD Encounter for screening mammogram for malignant neoplasm of breast Social History Tobacco Use Types Packs/Day Years Used Date Smoking Tobacco: Never Assessed Comments Unknown Sex and Gender Information Value Date Recorded Sex Assigned at Not on file 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
[2025-03-10 08:27] LABS: Glucose Urine UA Negative (Normal); Nitrate Urine Negative (Negative); Specific Gravity, Urine 1.014 (1.005-1.030)
[2025-03-10 08:58] LABS: Alanine Aminotransferase 10 U/L (0-33); Albumin Level 4.0 g/dL (3.5-5.2); Alkaline Phosphatase 75 U/L (35-105); Anion Gap 18.1 (5-19); Aspartate Amino Transferase 14 U/L (0-32); Blood Urea Nitrogen 8 mg/dL (8-23); Calcium 9.4 mg/dL (8.5-10.5); Carbon Dioxide 22 mmol/L (22-29); Chloride 100 mmol/L (98-107); Creatinine Clr Calc Pharmacy 70.3021; Globulin 3.2 g/dL (1.3-4.6); Glucose 88 mg/dL (65-115); Lipase 39 U/L (13-60); Osmolality Calculated 280 mOsm/kg (285-295); Potassium 4.1 mmol/L (3.5-5.1); Sodium 136 mmol/L (136-145); Total Protein 7.2 g/dL (6.6-8.7)
[2025-03-10 08:58] LABS: Add Urine Microscopic? YES; UA Manual Slide Review YES; UA Slide Review UA Slide Review Perf
[2025-03-10 09:21] VITALS: BP 140/85; PULSE 68; O2SAT 93
== END 2025-03-10 10:10 | disposition home or self-care (01) ==
PROVIDERS: Emergency Provider Emergency Medicine; PCP Electrodiagnostic Medicine
DX: R53.1 Weakness (principal)
CPT/HCPCS: 36415; 80053; 81001; 83690; 85025; 99284; J7030

== ENCOUNTER 2025-03-18 15:44 | Outpatient (CLI) | payer MEDICARE, SELFPAY ==
--- NOTE | 2025-03-18 15:52 | CTR_ITS ---
PROCEDURE INFORMATION: Exam: CT Abdomen And Pelvis With Contrast Exam date and time: 03/18/2025 4:56 PM Age: 70 years old Clinical indication: Abdominal pain; Localized; Left lower quadrant (llq); Prior surgery; Surgery date: 6+ months; Surgery type: Tubal; Left lower quad pain with nausea x 3-4 weeks, frequent uti's. ; Additional info: Left lower quadrant abdominal pain TECHNIQUE: Imaging protocol: Computed tomography of the abdomen and pelvis with contrast. Radiation optimization: All CT scans at this facility use at least one of these dose optimization techniques: automated exposure control; mA and/or kV adjustment per patient size (includes targeted exams where dose is matched to clinical indication); or iterative reconstruction. Contrast material: OMNI 350; Contrast volume: 100 ml; Contrast route: INTRAVENOUS (IV); COMPARISON: CT kidney stone [id number] 02/10/2025 6:43 PM RADIATION DOSE METRICS: Total DLP (mGy-cm): 480.54 FINDINGS: Liver: Left hepatic simple cyst 3.2 x 2.2 cm. Additional too small to characterize left hepatic hypodensities measuring up to 9 mm. Gallbladder and biliary ducts: Normal. No calcified stones. No ductal dilation. Pancreas: Normal. No ductal dilation. Spleen: Normal. No splenomegaly. Adrenal glands: Normal. No mass. Kidneys and ureters: Normal. No hydronephrosis. Stomach and bowel: Sigmoid colon diverticulosis. Diffuse colonic stool material. No small bowel loop dilatation. Appendix: Appendix is normal. Intraperitoneal space: Unremarkable. No free air. No significant fluid collection. Vasculature: Moderate calcified atherosclerotic changes are seen in the abdominal aorta. Lymph nodes: Unremarkable. No enlarged lymph nodes. Urinary bladder: Unremarkable as visualized. Reproductive: Unremarkable as visualized. Bones/joints: Mild lumbar spine degenerative changes. Soft tissues: Unremarkable. CT/CT abdomen pelvis w con* [id number] IMPRESSION: 1. Moderate calcified atherosclerotic changes are seen in the abdominal aorta. 2. Sigmoid colon diverticulosis. 3. Diffuse colonic stool material. Clinical correlation to exclude constipation is advised.
[2025-03-18] MEDS: iohexol 350 mg/mL 500 mL Btl (per mL) PO (16:59)
[2025-03-18] MEDS: iohexol 350 mg/mL 500 mL Btl (per mL) IV (17:00)
== END 2025-03-18 15:45 | disposition home or self-care (01) ==
LOC: RAD 15:45
PROVIDERS: PCP Electrodiagnostic Medicine; Visit Provider Electrodiagnostic Medicine
DX: R10.32 Left lower quadrant pain (principal); K76.89 Other specified diseases of liver; K57.30 Diverticulosis of large intestine without perforation or abscess without bleeding; R93.7 Abnormal findings on diagnostic imaging of other parts of musculoskeletal system; I70.0 Atherosclerosis of aorta; K56.41 Fecal impaction
CPT/HCPCS: 74177

== ENCOUNTER 2025-05-13 19:56 | Outpatient (CLI) | payer MEDICARE, SELFPAY | END 2025-05-13 19:57 | disposition home or self-care (01) | LOC: SLEEP 19:58 | PROVIDERS: PCP Electrodiagnostic Medicine; Referring Provider Electrodiagnostic Medicine; Visit Provider Internal Medicine Pulmonary Disease | DX: G47.33 Obstructive sleep apnea (adult) (pediatric) (principal); G47.61 Periodic limb movement disorder | CPT/HCPCS: 95811 ==